=== PATIENT | male | born 1960 | race Caucasian/White ===

== ENCOUNTER 2017-01-31 14:29 | Emergency (ER) ==
--- NOTE | 2017-01-31 15:30 | Diag Imaging Result Document ---
PROCEDURE NAME: CHEST-2 VIEWS - 01/31/2017 CHEST X-RAY, 2 VIEWS: COMPARISON: 02/23/2016. FINDINGS: There is increased cavitation of the focal, ill-defined opacity in the right lung apex. This cavity measures about 7 x 5 cm on the frontal view. There is some stable peripheral interstitial opacity throughout the lungs compatible with scarring or fibrosis. Stable COPD changes. Heart size is normal. No pneumothorax or pleural effusion. IMPRESSION: 1. Increased cavitation of the right apical lung opacity, nonspecific. No new opacities. 2. Otherwise, stable COPD and pulmonary scarring.
[2017-01-31 15:56] LABS: MANUAL DIFF NEEDED? NO
[2017-01-31 16:00] LABS: BASO% 0.5 % (0.0-0.8); EOS# 0.09 X1000 (0.0-0.7); EOS% 1.4 % (0.0-10.0); HEMOGLOBIN 15.3 g/dL (14.0-18.0); LYMPH% 22.5 % (20.5-51.1); MCH 30.8 PG (27-31); MCV 90.5 FL (81-99); MONO# 0.44 X1000 (0.11-0.59); MONO% 7.1 % (1.7-9.3); NEUT% 68.5 % (42.2-75.2); PLT 161 X1000 (130-400); RBC 4.97 XMIL (4.7-6.1)
[2017-01-31] MEDS ORDERED: DUONEB (A & A) INH ONE (16:20)
[2017-01-31] MEDS ORDERED: SOLU-MEDROL IV ONE (16:20)
--- NOTE | 2017-01-31 16:26 | PROVIDER DOCUMENTATION ---
HPI-General Adult - General Chief Complaint: Cough Stated Complaint: poss pneumonia Time Seen by Provider: 01/31/17 16:03 Source: patient Allergies/Adverse Reactions: Patient Allergies Allergy/AdvReac Type Severity Reaction Status Date / Time aspirin Allergy ABDOMINAL Verified 01/31/17 15:34 PAIN naproxen AdvReac ABDOMINAL Verified 01/31/17 15:34 PAIN Home Medications: Home Medication List Medication Instructions Recorded Confirmed Last Taken Type Rifampin 2 cap PO QAM 02/24/15 01/31/17 01/31/17 History Ethambutol [Myambutol] 2 tab PO QAM 04/30/15 01/31/17 01/31/17 History PRAVAstatin [Pravachol] 40 mg PO QAM 10/10/15 01/31/17 01/31/17 History Buspirone HCl [Buspar] 5 mg pe PO BID 02/23/16 01/31/17 01/31/17 History Ropinirole [Requip] 4 mg PO HS 02/23/16 01/31/17 01/30/17 History Umeclidinium Brm/Vilanterol Tr 1 puff INH DAILY 02/23/16 01/31/17 01/31/17 History [Anoro Ellipta 62.5-25 Mcg INH] Albuterol Sulfate [Proair Hfa] 8.5 gm IH PRN PRN 04/05/16 01/31/17 01/31/17 History Azithromycin 500 mg PO DAILY 04/05/16 01/31/17 01/31/17 History Fluticasone 50 Mcg Nasal [place] 2 spray OPAL DAILY 04/05/16 01/31/17 01/31/17 History [Flonase] Ipratropium/Albuterol Sulfate 3 ml IH 4XDAY 04/05/16 01/31/17 01/31/17 History [Iprat-Albut 0.5-3(2.5) mg/3 ml] Acetaminophen [Tylenol] 1,000 mg PO Q6H #0 tablet 04/10/16 01/31/17 Unknown Rx Famotidine [Pepcid] 20 mg PO DAILY #0 tablet 04/10/16 01/31/17 Unknown Rx Tramadol [Ultram] 100 mg PO Q6H #60 tablet 04/10/16 01/31/17 01/31/17 Rx Azithromycin [Zithromax Z-Francesco] 250 mg PO DIRECTED #1 pkg 01/31/17 Unknown Rx Meloxicam 15 mg PO DAILY 01/31/17 01/31/17 01/31/17 History Methylprednisolone [Medrol Dosepak] 4 mg PO DIRECTED #1 package 01/31/17 Unknown Rx Phenylephrine HCl/Cod/Prometh 2 tsp PO Q6H PRN PRN #120 syrup 01/31/17 Unknown Rx [Phenergan Vc-Codeine Syrup] Rifampin [Rifadin] 600 mg PO DAILY 01/31/17 01/31/17 01/31/17 History - History of Present Illness -Gen Adult Nature of Presenting Problems: Pt. is 56 yom that presents with c/o SOB and cough that began in December. Pt.. reports increased SOB on exertion. Pt. states he is still a smoker and has a Hx of COPD. Pt. reports a Hx of spontaneous pneumothorax on the right side but today his has pain on the left side. Pt. denies any injury or fever. Location of Pain/Injury: reports: back. denies: head, face, mouth, neck, chest , upper extremity, hand(s), abdomen, pelvis, genitalia, lower extremity, feet, upper body, lower body, generalized Pain Radiation: reports: no radiation Quality of Pain: reports: aching. denies: burning, cramping, dull, fullness, indigestion, pressure, sharp, stabbing, tearing, throbbing, tightness Severity: reports: mild. denies: moderate, severe Onset/Duration: reports: gradual, other (Two months) Timing: reports: still present. denies: improving, gone now, resolved prior to arrival, intermittent, constant, changing over time, getting worse Context/Activities at Onset: reports: none. denies: recent emotional stress, recent physical stress, recent trauma history, possible bad food, cold exposure , out of country travel Modifying Factors: improves with: nothing Associated Symptoms: reports: back/neck pain, cough, shortness of breath. denies: anxiety, arm pain, chest pain, constipation, diaphoresis, diarrhea, dizziness, EENT symptoms, fatigue, fever/chills, genitourinary problems, headaches, heartburn, joint pain, loss of appetite, malaise, muscle aches, sinus congestion/drainage, nausea, rash, seizure, sensory/motor loss, pain with inspiration, swelling/mass in abdomen, syncope, vomiting, weakness, trouble walking Similar Symptoms Previously?: Yes Recently seen or treated by another doctor?: No Review of Systems - Adult - REVIEW OF SYSTEMS - ADULT Constitutional: reports: see HPI. denies: chills, fever, fatique Eyes: reports: see HPI. denies: discharge, blurred vision, double vision Ears, Nose, Mouth & Throat: reports: see HPI. denies: ear pain, hearing loss, sinus problem, nose pain, loose teeth, mouth/dental pain, throat pain, throat swelling Cardiovascular: reports: see HPI. denies: chest pain, edema, irregular heart rate, palpitations, syncope Respiratory: reports: see HPI, chronic cough, dyspnea on exertion, shortness of breath, wheezing. denies: cough, excessive sputum production, pleurisy Gastrointestinal: reports: see HPI. denies: abdominal pain, hematemesis, diarrhea, frequent heartburn, nausea, vomiting Genitourinary: reports: see HPI. denies: dysuria, discharge, hematuria, hesitency, urgency Musculoskeletal: reports: see HPI, back pain. denies: bone pain, joint pain, joint swelling, neck pain Integumentary: reports: see HPI. denies: hives, hair loss, itching, rash, skin thickening Neurological: reports: see HPI. denies: ataxia, headache/migraines, numbness, paresthesia, seizure, tremors Psychiatric: reports: see HPI. denies: anxiety, depression, emotional problems , insomnia, panic attacks, suicidal thoughts Past History - Adult - PAST MEDICAL HISTORY-ADULT Review of Records: reports: Old Records Reviewed, Nursing Assessment Review, Medications Reviewed, Social history reviewed & non-contributory. Major Childhood Illnesses: reports: denies history Cardiovascular: reports: CAD, hyperlipidemia, [place] Respiratory: reports: COPD Gastrointestinal: reports: other (gastritis) Musculoskeletal: reports: chronic pain (back), intervertebral disc disease - PRIOR SURGERIES/PROCEDURES Surgical/Procedure History: reports: none - IMMUNIZATION STATUS Childhood Immunizations: UTD Flu Vaccine: See Nurse Assessment - FAMILY HISTORY Family History: reviewed, not pertinent, HTN - SOCIAL HISTORY Smoking: cigarettes, less than 1 pack/day Provider spent 3-5 mins advising pt. on dangers of tobacco.: Discussed the need to stop smoking. Physical Exam-General - PHYSICAL EXAM-ADULT Initial Vital Signs Reviewed: Yes - CONSTITUTIONAL General Appearance: alert, moderate distress, thin. negative: obese, anxious, lethargic, slow to respond, obtunded, combative - EYES Eyes: PERRL/EOMI, pink conjunctivae. negative: conjuctival exudate, scleral icterus, subconjunctival hemorrhage - HEAD, EARS, NOSE, MOUTH & THROAT HENMT: normocephalic/atraumatic, moist mucous membranes. negative: angioedema, frontal tenderness, maxillary tenderness - NECK Neck: non-tender, full range of motion, supple, normal inspection. negative: lymphadenopathy, trachial deviation, thyromegaly - RESPIRATORY Respiratory: decreased breath sounds, wheezing. negative: crackles, rales, rhonchi, crepitus - CARDIOVASCULAR Cardiovascular: normal peripheral pulses, regular rate, rhythm, no edema, no JVD , no murmur. negative: extra beats, friction rub, irregularly irregular - CHEST (BREASTS) Chest/Breast: deferred - GASTROINTESTINAL (ABDOMEN) Abdominal Exam: normal bowel sounds, non tender, soft. negative: distended, guarding, rigid, rebound, tenderness, hernia, mass - GENITOURINARY Male Genitalia: deferred Rectal Exam: deferred Hemoccult Exam: deferred - LYMPHATIC Lymphatic: no adenopathy. negative: axilla node tender, cervical node tenderness - MUSCULOSKELETAL Back Exam: normal inspection, no CVA tenderness, no vertebral tenderness, other (Tenderness at the bottom of the left scapula on palpation) Extremity: normal range of motion, non-tender, normal gait, normal inspection. negative: deformity, erythema, inflammation, swelling, tenderness Peripheral Pulses: radial (R): 2+, radial (L): 2+ - SKIN Integumentary: normal color, normal turgor, warm/dry. negative: cyanosis, diaphoresis, ecchymosis, erythema, jaundice, mottled, pallor, petechiae, purpura , rash, swelling, tenderness - NEUROLOGIC Neurologic: grossly normal, no motor/sensory deficits. negative: aphasia, facial droop, focal weakness, motor weakness, sensory deficit - PSYCHIATRIC Psych/Mental Status: normal mood/affect, normal thought content, normal thought process, oriented x 3. negative: anxious, disheveled, tearful Progress - PLAN OF CARE/RESULTS Progress/Plan/Lab Results: Discussed results and plan of care with patient. Patient agrees with plan and verbalizes understanding. Vital Signs Temp Pulse Resp BP Pulse Ox 01/31/17 16:48 77 26 H 122/70 96 01/31/17 16:31 86 20 96 01/31/17 14:32 97.4 F L 97 H 20 104/68 96 aspirin Allergy (Verified 01/31/17 15:34) ABDOMINAL PAIN naproxen Adverse Reaction (Verified 01/31/17 15:34) ABDOMINAL PAIN Rifampin 2 cap PO QAM 02/24/15 Ethambutol [Myambutol] 2 tab PO QAM 04/30/15 PRAVAstatin [Pravachol] 40 mg PO QAM 10/10/15 Buspirone HCl [Buspar] 5 mg pe PO BID 02/23/16 Ropinirole [Requip] 4 mg PO HS 02/23/16 Umeclidinium Brm/Vilanterol Tr [Anoro Ellipta 62.5-25 Mcg INH] 1 puff INH DAILY 02/23/16 Albuterol Sulfate [Proair Hfa] 8.5 gm IH PRN PRN 04/05/16 Azithromycin 500 mg PO DAILY 04/05/16 Fluticasone 50 Mcg Nasal [place] [Flonase] 2 spray OPAL DAILY 04/05/16 Ipratropium/Albuterol Sulfate [Iprat-Albut 0.5-3(2.5) mg/3 ml] 3 ml IH 4XDAY Acetaminophen [Tylenol] 1,000 mg PO Q6H #0 tablet 04/10/16 Famotidine [Pepcid] 20 mg PO DAILY #0 tablet 04/10/16 Tramadol [Ultram] 100 mg PO Q6H #60 tablet 04/10/16 Meloxicam 15 mg PO DAILY 01/31/17 Rifampin [Rifadin] 600 mg PO DAILY 01/31/17 Laboratory 01/31/17 01/31/17 01/31/17 15:45 15:45 15:45 WBC 6.21 RBC 4.97 Hgb 15.3 Hct 45.0 MCV 90.5 MCH 30.8 MCHC 34.0 RDW Std Deviation 13.2 Plt Count 161 MPV 10.0 Immature Gran % (Auto) 0.0 Neut % (Auto) 68.5 Lymph % (Auto) 22.5 [place] % (Auto) 7.1 Eos % (Auto) 1.4 Baso % (Auto) 0.5 Immature Gran # (Auto) 0.00 Neut # (Auto) 4.25 Lymph # (Auto) 1.40 [place] # (Auto) 0.44 Eos # (Auto) 0.09 Baso # (Auto) 0.03 Sodium 139 Potassium 4.0 Chloride 102 Carbon Dioxide 22 L Anion Gap 15 BUN 15 Creatinine 0.7 Estimated GFR/1.73 m2 > 60 BUN/Creatinine Ratio 21 Glucose 109 H Calculated Osmolality 279 Calcium 9.4 Total Bilirubin 0.13 L AST 18 ALT 14 Alkaline Phosphatase 66 Troponin T < 0.010 Total Protein 7.0 Albumin 4.0 Globulin 3.0 Albumin/Globulin Ratio 1.3 Orders Category Date Time Status Saline Loc NOW Care 01/31/17 16:20 Active CHEST-2 VIEWS [RAD] Stat Exams 01/31/17 14:34 Draft CBC WITH DIFF [HEME] Stat Lab 01/31/17 15:45 Completed COMPREHENSIVE METABOLIC PANEL [CHEM] Stat Lab 01/31/17 15:45 Completed TROPONIN T Stat Lab 01/31/17 15:45 Completed Albuterol 2.5MG/Ipratrop 0.5MG [Duoneb (A & A)] Med 01/31/17 16:20 Discontinued 6 ml INH NOW ONE Methylprednisolone Sod Succ [Solu-Medrol] Med 01/31/17 16:20 Discontinued 125 mg IV NOW ONE Aerosol Treatments Routine Oth 01/31/17 16:20 Completed Aerosol Treatments Stat Oth 01/31/17 16:20 Completed EKG [EKG] Stat Ther 01/31/17 16:19 Ordered Laboratory Tests 01/31/17 01/31/17 01/31/17 15:45 15:45 15:45 WBC 6.21 RBC 4.97 Hgb 15.3 Hct 45.0 MCV 90.5 MCH 30.8 MCHC 34.0 RDW Std Deviation 13.2 Plt Count 161 MPV 10.0 Immature Gran % (Auto) 0.0 Neut % (Auto) 68.5 Lymph % (Auto) 22.5 [place] % (Auto) 7.1 Eos % (Auto) 1.4 Baso % (Auto) 0.5 Immature Gran # (Auto) 0.00 Neut # (Auto) 4.25 Lymph # (Auto) 1.40 [place] # (Auto) 0.44 Eos # (Auto) 0.09 Baso # (Auto) 0.03 Sodium 139 Potassium 4.0 Chloride 102 Carbon Dioxide 22 L Anion Gap 15 BUN 15 Creatinine 0.7 Estimated GFR/1.73 m2 > 60 BUN/Creatinine Ratio 21 Glucose 109 H Calculated Osmolality 279 Calcium 9.4 Total Bilirubin 0.13 L AST 18 ALT 14 Alkaline Phosphatase 66 Troponin T < 0.010 Total Protein 7.0 Albumin 4.0 Globulin 3.0 Albumin/Globulin Ratio 1.3 - XRAY 1 XRAY Study: Chest (Increased cavitation on the right apical lung, nonspecific. No new opacities. Otherwise stable COPD and pulmonary scaring. (Luis)) XRAY Interpretation: see note Departure - Departure Time of Disposition Order: 17:28 DIAGNOSIS: COPD exacerbation, Bronchitis Disposition: HOME 01 Certified Medical Emergency: Emergent Condition: Stable Additional Instructions: Follow up with primary care physician Take medications as directed Return to ED for any concerns or worsening of symptoms ED Follow Up Instructions: You have been treated by a care provider in the Emergency Department. These instructions are being provided to you so you can have an understanding of how to care for yourself upon discharge. Upon discharge from the Emergency Department, you are responsible for making arrangements for follow-up care by a physician of your choice. Take all prescribed medications as directed. Return to the Emergency Department immediately for any new or worsening symptoms. You may call the Physician Referral phone number at [phone] to obtain a list of Physicians who are taking new patients. Prescriptions: Methylprednisolone [Medrol Dosepak] 4 mg PO DIRECTED #1 package Phenylephrine HCl/Cod/Prometh [Phenergan Vc-Codeine Syrup] 2 tsp PO Q6H PRN PRN #120 syrup PRN Reason: Cough Azithromycin [Zithromax Z-Francesco] 250 mg PO DIRECTED #1 pkg Attestation - Physician/ MALORIE Attestation Patient care was provided by Advanced Practice Provider:: Yes Advanced Practice Provider:: Rain Avina Advanced Practice Provider documentation review:: The Mid-level provider documentation, treatment plan and medical decision making was reviewed by the physician who agrees with all treatment and medical decision making by the MLP.
[2017-01-31 16:30] LABS: AGAP 15; ALKALINE PHOSPHATASE 66 U/L (32-122); BUN 15 mg/dL (8-22); CALCIUM 9.4 mg/dL (8.8-10.2); CHLORIDE 102 mmol/L (98-107); COSMO 279; GOT 18 U/L (10-34); GPT 14 U/L (10-44); SODIUM 139 mmol/L (136-145); TCO2 22 mmol/L (25-35); TOTAL BILIRUBIN 0.13 mg/dL (0.20-1.00)
--- NOTE | 2017-01-31 17:26 | ED EKG INTERP ---
EKG Interpretation - EKG Time of EKG reading by physician:: 17:15 EKG Read and Signed by:: Kevin Swift EKG Interpretation (*Must complete 3 of following elements*): Normal Rate: 66 Rhythm: nsr [place]: normal QRS: normal [place] Interval: normal ST Wave: normal
[2017-01-31 17:42] VITALS: BP 110/75
--- NOTE | 2017-02-01 09:22 | EKG Report ---
Test Performed on : 01/31/2017 5:15:48 PM Test Reason : CP Blood Pressure : / mmHG Vent. Rate : 066 BPM Atrial Rate : 066 BPM P-R Int : 150 ms QRS Dur : 100 ms QT Int : 368 ms P-R-T Axes : 060 066 073 degrees QTc Int : 385 ms Normal sinus rhythm. Normal ECG When compared with ECG of 23-FEB-2016 20:09, No significant change was found Unconfirmed Result
== END 2017-01-31 17:43 | disposition home or self-care (01) ==
LOC: ED 14:29
DX: J44.1 Chronic obstructive pulmonary disease with (acute) exacerbation (principal); J40 Bronchitis, not specified as acute or chronic; R06.02 Shortness of breath; R05 Cough; M54.9 Dorsalgia, unspecified; G89.29 Other chronic pain; R06.09 Other forms of dyspnea; R06.2 Wheezing; I25.10 Atherosclerotic heart disease of native coronary artery without angina pectoris; E78.5 Hyperlipidemia, unspecified; I25.2 Old myocardial infarction; J44.9 Chronic obstructive pulmonary disease, unspecified; F17.210 Nicotine dependence, cigarettes, uncomplicated; Z71.6 Tobacco abuse counseling; Z79.899 Other long term (current) drug therapy; Z79.1 Long term (current) use of non-steroidal anti-inflammatories (NSAID); Z79.51 Long term (current) use of inhaled steroids; Z82.49 Family history of ischemic heart disease and other diseases of the circulatory system
CPT/HCPCS: 71020; 80053; 84484; 85025; 93005; 94640; J2930

== ENCOUNTER 2017-02-02 14:25 | Observation (INO) ==
--- NOTE | 2017-02-02 14:58 | ED EKG INTERP ---
EKG Interpretation - EKG Time of EKG reading by physician:: 14:34 EKG Read and Signed by:: Constantin Ramsey EKG Interpretation (*Must complete 3 of following elements*): Abnormal Rate: 103 Rhythm: sinus tachycardia Comments: otherwise normal ECG Attestation - Scribe Verification/Attestation Scribe:: Jeanine Bucio Acting as Scribe for:: Constantin Ramsey Scribe documention review:: This chart was documented by a scribe and accurately reflects the service the provider performed and the decisions made by the provider.
[2017-02-02] MEDS ORDERED: DUONEB (A & A) INH ONE (15:16)
[2017-02-02] MEDS ORDERED: SOLU-MEDROL IV ONE (15:22)
[2017-02-02] MEDS ORDERED: NS 500 ML IV ONE ×2 (15:50→16:21)
[2017-02-02 15:52] LABS: MANUAL DIFF NEEDED? NO
[2017-02-02 15:56] LABS: BASO% 0.6 % (0.0-0.8); EOS# 0.02 X1000 (0.0-0.7); EOS% 0.4 % (0.0-10.0); HEMATOCRIT 43.2 % (42.0-52.0); HEMOGLOBIN 14.6 g/dL (14.0-18.0); LYMPH# 1.19 X1000 (1.2-3.4); LYMPH% 22.8 % (20.5-51.1); MCH 31.1 PG (27-31); MCHC 33.8 g/dL (33-37); MCV 91.9 FL (81-99); MONO# 0.51 X1000 (0.11-0.59); MONO% 9.8 % (1.7-9.3); MPV 10.5 FL (7.4-10.4); NEUT% 66.4 % (42.2-75.2); PLT 153 X1000 (130-400)
[2017-02-02 16:23] LABS: AGAP 11; ALBUMIN 3.9 g/dL (3.5-5.0); ALKALINE PHOSPHATASE 53 U/L (32-122); BUN 16 mg/dL (8-22); CHLORIDE 98 mmol/L (98-107); COSMO 271; GOT 16 U/L (10-34); GPT 15 U/L (10-44); POTASSIUM 3.6 mmol/L (3.5-5.1); SODIUM 135 mmol/L (136-145); TCO2 26 mmol/L (25-35); TOTAL BILIRUBIN 0.31 mg/dL (0.20-1.00)
--- NOTE | 2017-02-02 17:00 | Diag Imaging Result Document ---
PROCEDURE NAME: CHEST-PORTABLE - 02/02/2017 SINGLE FRONTAL RADIOGRAPH OF THE CHEST: COMPARISON: 01/31/2017. FINDINGS: The cavitary lesion at the right lung apex is stable. No new consolidations are identified. There are no definite pleural fluid collections. Cardiac silhouette and central vasculature are stable. IMPRESSION: Stable cavitary lesion at the right lung apex. Otherwise, the chest is unchanged.
[2017-02-02] MEDS ORDERED: ROCEPHIN 1 GM/NS 50 ML IV ONE (17:04)
[2017-02-02] MEDS ORDERED: ALBUTEROL NEB INH ONE (17:05)
[2017-02-02] MEDS ORDERED: ALBUTEROL NEB ONE (17:24)
[2017-02-02 17:51] LABS: ALLEN TEST YES; BE 0.3 mmoll (-3.0-3.0); BLOOD TYPE ARTERIAL; DRAW SITE R RADIAL; METHB 1.4 % (0.0-1.5); O2(CT) 18.2 mL/dL (15.0-23.0); PCO2(98.6) 45 mmHg (35-45); PO2(98.6) 68 mmHg (60-100); SAMPLE BLOOD; THB 14.5 g/dL (11.5-17.4); pH(98.6) 7.37 (7.35-7.45)
[2017-02-02 17:58] LABS: MODALITY CANNULA
[2017-02-02 19:26] LABS: URINE MICRO REVIEW NEEDED? NO; URINE SOURCE CLEAN CATCH
[2017-02-02 19:29] LABS: BILIRUBIN URINE NEGATIVE (NEGATIVE); BLOOD URINE NEGATIVE (NEGATIVE); COLOR YELLOW; GLUCOSE URINE NEGATIVE (NEGATIVE); LEUKOCYTES URINE NEGATIVE (NEGATIVE); NITRITE URINE NEGATIVE (NEGATIVE); PH URINE 6.5; PROTEIN URINE NEGATIVE (NEGATIVE); TURBIDITY URINE CLEAR (CLEAR); UROBILINOGEN URINE NORMAL (NORMAL)
[2017-02-02 19:31] LABS: UR EPITHELIAL CELLS <10 /HPF (<10); URINE BACTERIA NEGATIVE /HPF; URINE RBC <10 /HPF (<10); URINE WBC <10 /HPF (<10)
--- NOTE | 2017-02-02 20:08 | PROVIDER DOCUMENTATION ---
HPI-Respiratory General - General Chief Complaint: Shortness of Breath Stated Complaint: SOB Time Seen by Provider: 02/02/17 14:57 Source: patient Allergies/Adverse Reactions: Patient Allergies Allergy/AdvReac Type Severity Reaction Status Date / Time aspirin Allergy ABDOMINAL Verified 02/02/17 15:07 PAIN naproxen AdvReac ABDOMINAL Verified 02/02/17 15:07 PAIN Home Medications: Home Medication List Medication Instructions Recorded Confirmed Last Taken Type Ethambutol [Myambutol] 2 tab PO QAM 04/30/15 02/02/17 02/02/17 08:00 History PRAVAstatin [Pravachol] 40 mg PO QAM 10/10/15 02/02/17 02/02/17 08:00 History Buspirone HCl [Buspar] 5 mg pe PO BID 02/23/16 02/02/17 02/02/17 08:00 History Ropinirole [Requip] 4 mg PO HS 02/23/16 02/02/17 02/02/17 08:00 History Umeclidinium Brm/Vilanterol Tr 1 puff INH DAILY 02/23/16 02/02/17 02/02/17 08: 00 History [Anoro Ellipta 62.5-25 Mcg INH] Albuterol Sulfate [Proair Hfa] 8.5 gm IH PRN PRN 04/05/16 02/02/17 02/02/17 13: 00 History Fluticasone 50 Mcg Nasal [place] 2 spray OPAL DAILY 04/05/16 02/02/17 02/02/17 08: 00 History [Flonase] Ipratropium/Albuterol Sulfate 3 ml IH 4XDAY 04/05/16 02/02/17 02/02/17 13:00 History [Iprat-Albut 0.5-3(2.5) mg/3 ml] Acetaminophen [Tylenol] 1,000 mg PO Q6H #0 tablet 04/10/16 02/02/17 02/02/17 08: 00 Rx Azithromycin [Zithromax Z-Francesco] 250 mg PO DIRECTED #1 pkg 01/31/17 02/02/17 08:00 Rx Meloxicam 15 mg PO DAILY 01/31/17 02/02/17 02/02/17 08:00 History Methylprednisolone [Medrol Dosepak] 4 mg PO DIRECTED #1 package 01/31/1702/02/17 08:00 Rx Phenylephrine HCl/Cod/Prometh 2 tsp PO Q6H PRN PRN #120 syrup 01/31/17 02/02/17 02/02/17 08:00 Rx [Phenergan Vc-Codeine Syrup] Rifampin [Rifadin] 600 mg PO DAILY 01/31/17 02/02/17 02/02/17 08:00 History - History of Present Illness-Resp Nature of Presenting Problem: 56 yo with worsening shortnes of breath. KNown COPD and MAC chronic infection. Started to smoke again after recent . Not imrpoving despite zithromax, medrol dose pack and nebulizer Onset/Duration: reports: 1 week ago Timing: reports: getting worse Cough Quality/Degree: reports: severe, productive cough (white sputum) Current Respiratory Medication Therapy: Initiated see nurses note, Initiated A/ A nebulizer, Initiated steroid inhaler, Initiated other oral steroid Similar Symptoms Previously?: Yes Review of Systems - Adult - REVIEW OF SYSTEMS - ADULT Constitutional: reports: chills, fever Eyes: reports: no symptoms reported Ears, Nose, Mouth & Throat: reports: no symptoms reported Cardiovascular: reports: chest pain (L sided) Respiratory: reports: cough, shortness of breath, wheezing Gastrointestinal: reports: no symptoms reported Genitourinary: reports: no symptoms reported Neurological: reports: no symptoms reported Endocrine: reports: no symptoms reported Past History - Adult - PAST MEDICAL HISTORY-ADULT Review of Records: reports: Old Records Reviewed, Nursing Assessment Review, Medications Reviewed Major Childhood Illnesses: reports: denies history Cardiovascular: reports: CAD, hyperlipidemia, [place] Respiratory: reports: COPD Gastrointestinal: reports: other (gastritis) Musculoskeletal: reports: chronic pain (back), intervertebral disc disease - PRIOR SURGERIES/PROCEDURES Surgical/Procedure History: reports: none - IMMUNIZATION STATUS Childhood Immunizations: UTD Flu Vaccine: See Nurse Assessment - FAMILY HISTORY Family History: reviewed, not pertinent, HTN Physical Exam-General - PHYSICAL EXAM-ADULT Initial Vital Signs Reviewed: Yes - CONSTITUTIONAL General Appearance: alert, mild distress - EYES Eyes: PERRL/EOMI - HEAD, EARS, NOSE, MOUTH & THROAT HENMT: moist mucous membranes, normal ENT inspection - NECK Neck: non-tender, full range of motion, supple, normal inspection - RESPIRATORY Respiratory: decreased breath sounds, wheezing - CARDIOVASCULAR Cardiovascular: regular rate, rhythm, no edema, no gallop, no JVD, no murmur - GASTROINTESTINAL (ABDOMEN) Abdominal Exam: normal bowel sounds, non tender, soft, no organomegaly - GENITOURINARY Male Genitalia: deferred - MUSCULOSKELETAL Back Exam: normal inspection, no CVA tenderness, no vertebral tenderness Extremity: normal range of motion, non-tender, normal inspection, no pedal edema Progress - PLAN OF CARE/RESULTS Progress/Plan/Lab Results: Laboratory Tests 02/02/17 02/02/17 02/02/17 15:01 15:01 15:01 WBC 5.21 RBC 4.70 Hgb 14.6 Hct 43.2 MCV 91.9 MCH 31.1 H MCHC 33.8 RDW Std Deviation 13.2 Plt Count 153 MPV 10.5 H Immature Gran % (Auto) 0.0 Neut % (Auto) 66.4 Lymph % (Auto) 22.8 [place] % (Auto) 9.8 H Eos % (Auto) 0.4 Baso % (Auto) 0.6 Immature Gran # (Auto) 0.00 Neut # (Auto) 3.46 Lymph # (Auto) 1.19 L [place] # (Auto) 0.51 Eos # (Auto) 0.02 Baso # (Auto) 0.03 Specimen Type Sample Site pH pCO2 pO2 HCO3 Base Excess Oxyhemoglobin ABG O2 Sat (Calculated) ABG O2 Saturation ABG Carboxyhemoglobin ABG Methemoglobin Fabrice Test A-a O2 Difference Total Hemoglobin Lactate Liter Flow Blood Gas Modality FiO2 % Sodium 135 L Potassium 3.6 Chloride 98 Carbon Dioxide 26 Anion Gap 11 BUN 16 Creatinine 0.8 Estimated GFR/1.73 m2 > 60 BUN/Creatinine Ratio 20 Glucose 89 Calculated Osmolality 271 Calcium 9.0 Total Bilirubin 0.31 AST 16 ALT 15 Alkaline Phosphatase 53 Troponin T Nfx-Y-Vcmtnebwlso Pept 49 Total Protein 7.0 Albumin 3.9 Globulin 3.1 Albumin/Globulin Ratio 1.3 Plasma Lactate Urine Source Urine Color Urine Turbidity Urine pH Ur Specific [place] Urine Protein Ur Glucose (Stick) Ur Ketones (Stick) Urine Blood Urine Nitrite Urine Bilirubin Urobilinogen Dipstick Urine Leukocytes Urine WBC (Auto) Urine RBC (Auto) U Epithel Cells (Auto) Urine Bacteria (Auto) 02/02/17 02/02/17 02/02/17 15:01 16:54 17:45 WBC RBC Hgb Hct MCV MCH MCHC RDW Std Deviation Plt Count MPV Immature Gran % (Auto) Neut % (Auto) Lymph % (Auto) [place] % (Auto) Eos % (Auto) Baso % (Auto) Immature Gran # (Auto) Neut # (Auto) Lymph # (Auto) [place] # (Auto) Eos # (Auto) Baso # (Auto) Specimen Type ARTERIAL Sample Site R RADIAL pH 7.37 pCO2 45 pO2 68 HCO3 24.9 Base Excess 0.3 Oxyhemoglobin 89.3 L* ABG O2 Sat (Calculated) 18.2 ABG O2 Saturation 98.0 ABG Carboxyhemoglobin 7.50 H* ABG Methemoglobin 1.4 Fabrice Test YES A-a O2 Difference 75.0 Total Hemoglobin 14.5 Lactate 0.60 Liter Flow 2.0 Blood Gas Modality [place] FiO2 % 28.0 Sodium Potassium Chloride Carbon Dioxide Anion Gap BUN Creatinine Estimated GFR/1.73 m2 BUN/Creatinine Ratio Glucose Calculated Osmolality Calcium Total Bilirubin AST ALT Alkaline Phosphatase Troponin T < 0.010 Kmk-Z-Qvqvgvkvsng Pept Total Protein Albumin Globulin Albumin/Globulin Ratio Plasma Lactate 0.9 Urine Source Urine Color Urine Turbidity Urine pH Ur Specific [place] Urine Protein Ur Glucose (Stick) Ur Ketones (Stick) Urine Blood Urine Nitrite Urine Bilirubin Urobilinogen Dipstick Urine Leukocytes Urine WBC (Auto) Urine RBC (Auto) U Epithel Cells (Auto) Urine Bacteria (Auto) 02/02/17 18:28 WBC RBC Hgb Hct MCV MCH MCHC RDW Std Deviation Plt Count MPV Immature Gran % (Auto) Neut % (Auto) Lymph % (Auto) [place] % (Auto) Eos % (Auto) Baso % (Auto) Immature Gran # (Auto) Neut # (Auto) Lymph # (Auto) [place] # (Auto) Eos # (Auto) Baso # (Auto) Specimen Type Sample Site pH pCO2 pO2 HCO3 Base Excess Oxyhemoglobin ABG O2 Sat (Calculated) ABG O2 Saturation ABG Carboxyhemoglobin ABG Methemoglobin Fabrice Test A-a O2 Difference Total Hemoglobin Lactate Liter Flow Blood Gas Modality FiO2 % Sodium Potassium Chloride Carbon Dioxide Anion Gap BUN Creatinine Estimated GFR/1.73 m2 BUN/Creatinine Ratio Glucose Calculated Osmolality Calcium Total Bilirubin AST ALT Alkaline Phosphatase Troponin T Nzy-K-Ztqnxanbelv Pept Total Protein Albumin Globulin Albumin/Globulin Ratio Plasma Lactate Urine Source CLEAN CATCH Urine Color YELLOW Urine Turbidity CLEAR Urine pH 6.5 Ur Specific [place] 1.010 Urine Protein NEGATIVE Ur Glucose (Stick) NEGATIVE Ur Ketones (Stick) NEGATIVE Urine Blood NEGATIVE Urine Nitrite NEGATIVE Urine Bilirubin NEGATIVE Urobilinogen Dipstick NORMAL Urine Leukocytes NEGATIVE Urine WBC (Auto) <10 Urine RBC (Auto) <10 U Epithel Cells (Auto) <10 Urine Bacteria (Auto) NEGATIVE Orders Category Date Time Status Oxygen Therapy- ED Nursing DIRECTED Care 02/02/17 15:16 Active Saline Loc DIRECTED Care 02/02/17 15:16 Active CHEST-PORTABLE [RAD] Stat Exams 02/02/17 15:[address] THORAX W/CONTRAST [CT] Stat Exams 02/02/17 17:13 Taken ABG [RESP] Routine Lab 02/02/17 17:45 Completed BLOOD CULTURE [BLDCUL] Stat Lab 02/02/17 16:54 Results CBC WITH ELECTRONIC DIFF [HEME] Stat Lab 02/02/17 15:01 Completed COMPREHENSIVE METABOLIC PANEL [CHEM] Stat Lab 02/02/17 15:01 Completed LACTATE, PLASMA [CHEM] Stat Lab 02/02/17 16:54 Completed PRO B-NATRIURETIC PEPTIDE Stat Lab 02/02/17 15:01 Completed TROPONIN T Stat Lab 02/02/17 15:01 Completed URINALYSIS [URINALYSIS] Stat Lab 02/02/17 18:28 Completed 0.9% Sodium Chloride Inj [Ns] 500 ml Med 02/02/17 16:21 Discontinued IV 500 mls/hr 0.9% Sodium Chloride Inj [Ns] 500 ml Med 02/02/17 15:50 Discontinued IV 999 mls/hr Albuterol 2.5MG/Ipratrop 0.5MG [Duoneb (A & A)] Med 02/02/17 15:16 Discontinued 3 ml INH NOW ONE Albuterol [Albuterol Neb] Med 02/02/17 17:24 Discontinued 2.5 mg .ROUTE .STK-MED ONE Albuterol [Albuterol Neb] Med 02/02/17 17:05 Discontinued 2.5 mg INH NOW ONE CefTRIAXONE 1 GM/NS [Rocephin 1 gm/Ns] 50 ml Med 02/02/17 17:04 Discontinued IV NOW Methylprednisolone Sod Succ [Solu-Medrol] Med 02/02/17 15:22 Discontinued 60 mg IV NOW ONE Aerosol Treatments Routine Oth 02/02/17 15:17 Completed Aerosol Treatments Routine Oth 02/02/17 17:05 Completed Aerosol Treatments Stat Ot 02/02/17 15:16 Completed Aerosol Treatments Stat Ot 02/02/17 15:17 Completed Aerosol Treatments Stat Ot 02/02/17 17:05 Completed Pulse Oximetry Stat Ot 02/02/17 15:16 Completed Vital Signs Temp Pulse Resp BP Pulse Ox 02/02/17 19:39 69 20 93/61 99 02/02/17 18:37 100/66 02/02/17 18:14 80 106/67 02/02/17 17:55 72 20 94/69 96 02/02/17 15:49 68 17 84/68 94 L 02/02/17 15:20 68 20 02/02/17 14:30 97.9 F 92 H 26 H 89/67 96 aspirin Allergy (Verified 02/02/17 15:07) ABDOMINAL PAIN naproxen Adverse Reaction (Verified 02/02/17 15:07) ABDOMINAL PAIN Ethambutol [Myambutol] 2 tab PO QAM 04/30/15 PRAVAstatin [Pravachol] 40 mg PO QAM 10/10/15 Buspirone HCl [Buspar] 5 mg pe PO BID 02/23/16 Ropinirole [Requip] 4 mg PO HS 02/23/16 Umeclidinium Brm/Vilanterol Tr [Anoro Ellipta 62.5-25 Mcg INH] 1 puff INH DAILY 02/23/16 Albuterol Sulfate [Proair Hfa] 8.5 gm IH PRN PRN 04/05/16 Fluticasone 50 Mcg Nasal [place] [Flonase] 2 spray OPAL DAILY 04/05/16 Ipratropium/Albuterol Sulfate [Iprat-Albut 0.5-3(2.5) mg/3 ml] 3 ml IH 4XDAY Acetaminophen [Tylenol] 1,000 mg PO Q6H #0 tablet 04/10/16 Azithromycin [Zithromax Z-Francesco] 250 mg PO DIRECTED #1 pkg 01/31/17 Meloxicam 15 mg PO DAILY 01/31/17 Methylprednisolone [Medrol Dosepak] 4 mg PO DIRECTED #1 package 01/31/17 Phenylephrine HCl/Cod/Prometh [Phenergan Vc-Codeine Syrup] 2 tsp PO Q6H PRN PRN #120 syrup 01/31/17 Rifampin [Rifadin] 600 mg PO DAILY 01/31/17 I&O 02/01/17 02/02/17 02/03/17 06:59 06:59 06:59 Output Total 50 Balance -50 Laboratory 02/02/17 02/02/17 02/02/17 18:28 17:45 16:54 WBC RBC Hgb Hct MCV MCH MCHC RDW Std Deviation Plt Count MPV Immature Gran % (Auto) Neut % (Auto) Lymph % (Auto) [place] % (Auto) Eos % (Auto) Baso % (Auto) Immature Gran # (Auto) Neut # (Auto) Lymph # (Auto) [place] # (Auto) Eos # (Auto) Baso # (Auto) Specimen Type ARTERIAL Sample Site R RADIAL pH 7.37 pCO2 45 pO2 68 HCO3 24.9 Base Excess 0.3 Oxyhemoglobin 89.3 L* ABG O2 Sat (Calculated) 18.2 ABG O2 Saturation 98.0 ABG Carboxyhemoglobin 7.50 H* ABG Methemoglobin 1.4 Fabrice Test YES A-a O2 Difference 75.0 Total Hemoglobin 14.5 Lactate 0.60 Liter Flow 2.0 Blood Gas Modality [place] FiO2 % 28.0 Sodium Potassium Chloride Carbon Dioxide Anion Gap BUN Creatinine Estimated GFR/1.73 m2 BUN/Creatinine Ratio Glucose Calculated Osmolality Calcium Total Bilirubin AST ALT Alkaline Phosphatase Troponin T Svj-Q-Jxkwqtlseul Pept Total Protein Albumin Globulin Albumin/Globulin Ratio Plasma Lactate 0.9 Urine Source CLEAN CATCH Urine Color YELLOW Urine Turbidity CLEAR Urine pH 6.5 Ur Specific [place] 1.010 Urine Protein NEGATIVE Ur Glucose (Stick) NEGATIVE Ur Ketones (Stick) NEGATIVE Urine Blood NEGATIVE Urine Nitrite NEGATIVE Urine Bilirubin NEGATIVE Urobilinogen Dipstick NORMAL Urine Leukocytes NEGATIVE Urine WBC (Auto) <10 Urine RBC (Auto) <10 U Epithel Cells (Auto) <10 Urine Bacteria (Auto) NEGATIVE 02/02/17 02/02/17 02/02/17 15:01 15:01 15:01 WBC RBC Hgb Hct MCV MCH MCHC RDW Std Deviation Plt Count MPV Immature Gran % (Auto) Neut % (Auto) Lymph % (Auto) [place] % (Auto) Eos % (Auto) Baso % (Auto) Immature Gran # (Auto) Neut # (Auto) Lymph # (Auto) [place] # (Auto) Eos # (Auto) Baso # (Auto) Specimen Type Sample Site pH pCO2 pO2 HCO3 Base Excess Oxyhemoglobin ABG O2 Sat (Calculated) ABG O2 Saturation ABG Carboxyhemoglobin ABG Methemoglobin Fabrice Test A-a O2 Difference Total Hemoglobin Lactate Liter Flow Blood Gas Modality FiO2 % Sodium 135 L Potassium 3.6 Chloride 98 Carbon Dioxide 26 Anion Gap 11 BUN 16 Creatinine 0.8 Estimated GFR/1.73 m2 > 60 BUN/Creatinine Ratio 20 Glucose 89 Calculated Osmolality 271 Calcium 9.0 Total Bilirubin 0.31 AST 16 ALT 15 Alkaline Phosphatase 53 Troponin T < 0.010 Ysd-K-Ztmojmmqxop Pept 49 Total Protein 7.0 Albumin 3.9 Globulin 3.1 Albumin/Globulin Ratio 1.3 Plasma Lactate Urine Source Urine Color Urine Turbidity Urine pH Ur Specific [place] Urine Protein Ur Glucose (Stick) Ur Ketones (Stick) Urine Blood Urine Nitrite Urine Bilirubin Urobilinogen Dipstick Urine Leukocytes Urine WBC (Auto) Urine RBC (Auto) U Epithel Cells (Auto) Urine Bacteria (Auto) 02/02/17 15:01 WBC 5.21 RBC 4.70 Hgb 14.6 Hct 43.2 MCV 91.9 MCH 31.1 H MCHC 33.8 RDW Std Deviation 13.2 Plt Count 153 MPV 10.5 H Immature Gran % (Auto) 0.0 Neut % (Auto) 66.4 Lymph % (Auto) 22.8 [place] % (Auto) 9.8 H Eos % (Auto) 0.4 Baso % (Auto) 0.6 Immature Gran # (Auto) 0.00 Neut # (Auto) 3.46 Lymph # (Auto) 1.19 L [place] # (Auto) 0.51 Eos # (Auto) 0.02 Baso # (Auto) 0.03 Specimen Type Sample Site pH pCO2 pO2 HCO3 Base Excess Oxyhemoglobin ABG O2 Sat (Calculated) ABG O2 Saturation ABG Carboxyhemoglobin ABG Methemoglobin Fabrice Test A-a O2 Difference Total Hemoglobin Lactate Liter Flow Blood Gas Modality FiO2 % Sodium Potassium Chloride Carbon Dioxide Anion Gap BUN Creatinine Estimated GFR/1.73 m2 BUN/Creatinine Ratio Glucose Calculated Osmolality Calcium Total Bilirubin AST ALT Alkaline Phosphatase Troponin T Wkd-Y-Hipfqxtcxdl Pept Total Protein Albumin Globulin Albumin/Globulin Ratio Plasma Lactate Urine Source Urine Color Urine Turbidity Urine pH Ur Specific [place] Urine Protein Ur Glucose (Stick) Ur Ketones (Stick) Urine Blood Urine Nitrite Urine Bilirubin Urobilinogen Dipstick Urine Leukocytes Urine WBC (Auto) Urine RBC (Auto) U Epithel Cells (Auto) Urine Bacteria (Auto) - XRAY 1 XRAY Study: Chest (R upper lung cavitary process) - CT/MRI 1 CT Study: Thorax (worsening infectious process) - CONSULTS/PCP/HOSPITALIST Notification #1 *Consult/PCP/Hospitalist*: Dr Hilario Time Discussed: 18:45 Consult Disposition: Will see in ED, Admit - CHANGE OF SHIFT REPORT (ED Provider) Tentative Impression of Patient: COPD exascerbation, low BP suggests sepsis? worsening chest process Departure - Departure Time of Disposition Order: 18:45 DIAGNOSIS: COPD exacerbation, Pneumonia Disposition: ADMITTED INPATIENT 09 Certified Medical Emergency: Emergent Condition: Fair Referrals: Carina Vergara MD [Primary Care Provider] -
--- NOTE | 2017-02-02 20:20 | Diag Imaging Result Document ---
PROCEDURE NAME: CT THORAX W/CONTRAST - 02/02/2017 CT CHEST WITH IV CONTRAST: COMPARISON: 11/25/2015. FINDINGS: There is severe pulmonary emphysema. Since the previous study, there has been an overall increase in the cavitation of the thick-walled cavitary mass in the right lung apex. It's overall size is somewhat larger but this appears to be due to the increase in size of the central air-filled cavity. It measures approximately 6.1 x 4.7 cm axially (4.8 x 4.1 cm previously). This is reported to be due to RODGER infection. There is bronchiectasis near the right lung apex similar to the previous study. There are multiple new smaller nodules throughout both lungs. Most of these new nodules are in the upper lobes as well as the right middle lobe. However, there are a few new nodules in the right lower lobe as well. For instance, there is a new nodule in the right upper lobe anteriorly on image 52 of series 3 that measures up to 1.9 cm in the greatest dimension. There is also a new nodule in the left upper lobe on image 55 of series 3 that measures up to 1.7 cm in the greatest dimension. These are probably infectious nodules related to the patient's mycobacterial infection. Continued surveillance is recommended. There are no pleural fluid collections and there is no pneumothorax. The heart is not enlarged. There are a few calcified mediastinal lymph nodes indicating prior granulomatous disease. Limited views of the upper abdomen reveal a few low- dense hepatic foci that are similar to the previous study and probably represent tiny cysts. IMPRESSION: 1. Severe emphysema. 2. Modest increase in size of the cavitary mass at the right lung apex with increase in its cavitation. 3. Multiple new pulmonary nodules that are smaller than the dominant mass bilaterally. These are also likely related to the patient's chronic mycobacterial infection. However, continued surveillance is recommended. 4. Other incidental/nonacute findings detailed above. [facility]
[2017-02-02] MEDS ORDERED: LEVAQUIN 750 MG/D5W 150 ML IV SCH (23:16)
[2017-02-02] MEDS ORDERED: REQUIP PO SCH (23:45)
[2017-02-02] MEDS: SOLU-MEDROL IV SCH (23:50)
[2017-02-03] MEDS ORDERED: DUONEB (A & A) INH PRN (01:28)
--- NOTE | 2017-02-03 04:25 | HISTORY AND PHYSICAL ---
CHIEF COMPLAINT: Shortness of breath x3 weeks. HISTORY OF PRESENTING ILLNESS: This 56-year-old male with a history of a MAC infection and COPD with emphysema presented to the emergency department with 3 weeks history of progressive worsening shortness of breath. The patient states for the past 2-3 days he was gasping for breath and was having more cough symptoms. Subsequently had come to the emergency department where he was evaluated and it was thought that he would need hospitalization for further treatment. At the time my examination, he denied any headache, fever, chills, nausea, vomiting, diarrhea, hemoptysis, melena, or weight changes, but complained of shortness of breath and cough. PAST MEDICAL HISTORY: COPD and MAC infection. PAST SURGICAL HISTORY: Right knee surgery. ALLERGIES: Naproxen. CURRENT MEDICATIONS: As listed in MAR. SOCIAL HISTORY: Forty-five pack years history of smoking. History of social alcohol use. Denies any illicit drug use. FAMILY HISTORY: No history of coronary disease. REVIEW OF SYSTEMS: Twelve point systems listed is as in HPI. Other systems negative. PHYSICAL EXAMINATION: GENERAL: Cooperative, friendly male. He is resting more comfortably now. VITAL SIGNS: Temperature 97.9 degrees, pulse 92, respiration are 17, blood pressure was 84/68. HEENT: Atraumatic, normocephalic. Extraocular movements intact. PERRLA. NECK: No masses. CHEST: Rhonchi. CARDIOVASCULAR: Regular rate and rhythm. ABDOMEN: Soft. Positive bowel sounds. EXTREMITIES: No edema. NEUROLOGIC: He is awake, alert, oriented x3. GENITOURINARY: No bladder distention. SKIN: Warm. LABORATORIES AND STUDIES: WBC 5.21, hemoglobin 14.6, hematocrit 43.2, platelets 153,000. Sodium 135, potassium 3.6, chloride 98, CO2 of 26, BUN is 11, creatinine 0.8. ASSESSMENT: This 56-year-old male with a history of chronic obstructive pulmonary disease, and emphysema and a MAC infection had presented to emergency department with 3 days history of progressive worsening shortness of breath. The patient was evaluated in the emergency room and symptoms suggestive of chronic obstructive pulmonary disease exacerbation. He will need hospitalization for further management. 1. Acute chronic obstructive pulmonary disease exacerbation. 2. Chronic MAC infection. 3. Ongoing tobacco abuse. PLAN: 1. We will admit patient to medical floor with telemetry. 2. We will continue patient on IV antibiotics and DuoNebs. 3. I counseled patient on smoking cessation. 4. We will put patient on DVT prophylaxis with SCD. 5. We will continue to follow and reassess.
[2017-02-03] MEDS: SOLU-MEDROL IV SCH ×2 (05:49→11:05)
[2017-02-03 06:19] LABS: MANUAL DIFF NEEDED? NO
[2017-02-03 06:29] LABS: BASO% 0.2 % (0.0-0.8); HEMATOCRIT 42.1 % (42.0-52.0); HEMOGLOBIN 14.3 g/dL (14.0-18.0); LYMPH# 0.88 X1000 (1.2-3.4); LYMPH% 18.4 % (20.5-51.1); MCV 91.1 FL (81-99); MONO# 0.14 X1000 (0.11-0.59); MONO% 2.9 % (1.7-9.3); MPV 10.1 FL (7.4-10.4); NEUT% 78.5 % (42.2-75.2); PLT 161 X1000 (130-400); RBC 4.62 XMIL (4.7-6.1)
[2017-02-03 06:48] LABS: AGAP 11; BUN 13 mg/dL (8-22); CALCIUM 9.1 mg/dL (8.8-10.2); CHLORIDE 105 mmol/L (98-107); COSMO 280; POTASSIUM 4.5 mmol/L (3.5-5.1); SODIUM 140 mmol/L (136-145); TCO2 24 mmol/L (25-35)
--- NOTE | 2017-02-03 07:02 | EKG Report ---
Test Performed on : 02/02/2017 2:34:33 PM Test Reason : No Order in [employer] Blood Pressure : / mmHG Vent. Rate : 103 BPM Atrial Rate : 103 BPM P-R Int : 146 ms QRS Dur : 096 ms QT Int : 330 ms P-R-T Axes : 071 059 070 degrees QTc Int : 432 ms Sinus tachycardia. Otherwise normal ECG When compared with ECG of 31-JAN-2017 17:15, (Unconfirmed) Vent. rate has increased BY 37 BPM Unconfirmed Result
[2017-02-03] MEDS ORDERED: MOBIC PO SCH (09:00)
[2017-02-03] MEDS ORDERED: RIFAMPIN PO SCH (09:00)
[2017-02-03] MEDS ORDERED: FLONASE NAS SCH (09:00)
[2017-02-03] MEDS ORDERED: BUSPAR PO SCH (09:00)
[2017-02-03] MEDS ORDERED: MYAMBUTOL PO SCH (09:00)
[2017-02-03 10:24] VITALS: BP 108/65
[2017-02-03] MEDS ORDERED: PRAVACHOL PO SCH (21:00)
--- NOTE | 2017-02-04 07:12 | DISCHARGE SUMMARY ---
ADMISSION DATE: 02/02/2017 DISCHARGE DATE: 02/03/2017 PRIMARY CARE PHYSICIAN: Dr. Vergara. ADMISSION DIAGNOSES: 1. An acute chronic obstructive pulmonary disease exacerbation. 2. Chronic MAC infection. 3. Ongoing tobacco abuse. POSTOPERATIVE DIAGNOSES: 1. An acute chronic obstructive pulmonary disease exacerbation. 2. Chronic MAC infection. 3. Ongoing tobacco abuse. SUMMARY OF FINDINGS: This is a 56-year-old male who presented to [facility] with complaints of a 3-week history of progressively worsening shortness of breath. States that for the past 2-3 days he had been gasping for breath and having more cough symptoms. He had come to the emergency room and was evaluated. His workup was essentially negative. His O2 saturation on arrival was 96% on room air. His chest x-ray showed a stable cavitary lesion at the right lung apex; otherwise, chest unchanged. They obtained a chest CT that showed severe emphysema, a modest increase in the size of the cavitary mass at the right lung apex with increase in his cavitation, multiple new pulmonary nodules that were smaller than the dominant mass bilaterally, and are likely related to the patient's chronic mycobacterial infection. He was admitted, placed on IV antibiotics, IV steroids, DuoNebs. This a.m. the patient states he is feeling 100% better. Has been up ambulating in the sharma without his oxygen on. Denies any further shortness of breath. Has been 100% O2 saturation on room air. His lungs are clear this a.m., and it is felt he can safely be discharged home today. DISCHARGE MEDICATIONS: He will continue his home medications of: 1. BuSpar 5 mg p.o. b.i.d. 2. Ethambutol 400 mg 2 tablets p.o. q.a.m. 3. Flonase nasal spray 2 sprays nasally daily. 4. Mobic 15 mg p.o. daily. 5. Pravachol 40 mg p.o. q.a.m. 6. Rifampin 600 mg p.o. daily. 7. Ropinirole 4 mg p.o. at bedtime. 8. Tylenol 1000 mg p.o. q.6 hours. 9. ProAir. Inhalation as needed. 10. Continue his Z-Francesco. 11. Continue his DuoNeb 4 times daily. 12. Continue his Medrol Dosepak. 13. Continue his Phenergan codeine cough syrup, 2 teaspoons p.o. q.6 hours p.r.n., 14. Anoro Ellipta 1 puff inhalation daily. FOLLOWUP: He has an appointment scheduled in the morning with his primary care physician. I believe he said it was at 10 a.m. He is to keep this appointment. All discharge instructions have been reviewed with the patient and he verbalized understanding. DISCHARGE TIME: 35 minutes. Dictated by AGNES Adams for Aidan Arzola MD
== END 2017-02-03 14:32 | disposition home or self-care (01) ==
LOC: ED 14:25 → INTOOBSV 22:07 → 4N 22:07
PROVIDERS: ATTEND Internal Medicine
DX: J44.0 Chronic obstructive pulmonary disease with (acute) lower respiratory infection (principal); A31.0 Pulmonary mycobacterial infection; J44.1 Chronic obstructive pulmonary disease with (acute) exacerbation; F17.210 Nicotine dependence, cigarettes, uncomplicated; R91.8 Other nonspecific abnormal finding of lung field; E78.5 Hyperlipidemia, unspecified; R06.02 Shortness of breath; R50.9 Fever, unspecified; I25.10 Atherosclerotic heart disease of native coronary artery without angina pectoris; I25.2 Old myocardial infarction; K29.70 Gastritis, unspecified, without bleeding; G89.29 Other chronic pain; Z79.51 Long term (current) use of inhaled steroids; Z79.1 Long term (current) use of non-steroidal anti-inflammatories (NSAID); Z79.899 Other long term (current) drug therapy; Z82.49 Family history of ischemic heart disease and other diseases of the circulatory system; Z71.6 Tobacco abuse counseling
CPT/HCPCS: 71010; 71260; 80048; 80053; 81001; 82805; 83605; 83880; 84484; 85025; 87040; 93005; 94640; 94761; 94799; J0696; J2930; J7040; Q9967

== ENCOUNTER 2019-06-28 20:25 | Inpatient (IN) ==
--- NOTE | 2019-06-28 20:54 | PROVIDER DOCUMENTATION ---
HPI-Respiratory General - General Chief Complaint: Shortness of Breath Stated Complaint: sob Time Seen by Provider: 06/28/19 20:38 Allergies/Adverse Reactions: Patient Allergies Allergy/AdvReac Type Severity Reaction Status Date / Time aspirin Allergy ABDOMINAL Verified 06/15/19 13:20 PAIN naproxen AdvReac ABDOMINAL Verified 06/15/19 13:20 PAIN Home Medications: Home Medication List Medication Instructions Recorded Confirmed Last Taken Type Ethambutol [Myambutol] 2 tab PO QAM 04/30/15 12/06/18 12/05/18 History PRAVAstatin [Pravachol] 40 mg PO QAM 10/10/15 12/06/18 12/05/18 History Buspirone HCl [Buspar] 5 mg pe PO BID 02/23/16 12/06/18 12/05/18 History Ropinirole [Requip] 4 mg PO HS 02/23/16 12/06/18 12/05/18 History Umeclidinium Brm/Vilanterol Tr 1 puff INH DAILY 02/23/16 12/06/18 12/05/18 History [Anoro Ellipta 62.5-25 Mcg INH] Albuterol Sulfate [Proair Hfa] 8.5 gm IH PRN PRN 04/05/16 12/06/18 12/05/18 History Ipratropium/Albuterol Sulfate 3 ml IH 4XDAY 04/05/16 12/06/18 12/05/18 History [Iprat-Albut 0.5-3(2.5) mg/3 ml] Meloxicam 15 mg PO DAILY 01/31/17 12/06/18 12/05/18 History Rifampin [Rifadin] 600 mg PO DAILY 01/31/17 12/06/18 12/05/18 History Acetaminophen [Tylenol] 1,000 mg PO Q6H PRN 05/18/18 12/06/18 12/05/18 History Azithromycin 750 mg PO QAM 05/18/18 12/06/18 12/05/18 History Ciprofloxacin HCl [Cipro] 500 mg PO Q12H 05/18/18 12/06/18 12/05/18 History Gabapentin 300 mg PO DAILY 05/18/18 12/06/18 12/05/18 History Lisinopril 2.5 mg PO DAILY 05/18/18 12/06/18 12/05/18 History Sulfamethoxazole/Trimethoprim 2 each PO DAILY 05/18/18 12/06/18 12/05/18 History [Bactrim Ds Tablet] Fluconazole [Diflucan] 100 mg PO ORDERED #14 tab 12/06/18 Unknown Rx Ketoconazole 15 gm TP TID 30 Days #1 cream..g. 12/06/18 Unknown Rx Albuterol 2.5MG/Ipratrop 0.5MG 3 ml INH Q4-6H PRN PRN #1 b 06/15/19 Unknown Rx [Duoneb] Guaifenesin E.r. [Mucinex] 600 mg PO Q12HR #6 tab 06/15/19 Unknown Rx Prednisone 40 mg PO DAILY #5 tab 06/15/19 Unknown Rx - History of Present Illness-Resp Nature of Presenting Problem: [id number] presents to the ER with c/o increasing SOB over the last 2 days. He states that he is on 2L NC at home and smoke 1 1/2 PPD. Patient has a history of COPD and MAC infection. He has been recently seen by Dr Rodriguez in April. Onset/Duration: reports: 2 days ago Cough Quality/Degree: reports: productive cough, sputum Episode Frequency: frequent episodes Similar Symptoms Previously?: Yes Recently seen or treated by another doctor?: Yes Review of Systems - Adult - REVIEW OF SYSTEMS - ADULT Constitutional: reports: see HPI. denies: chills, fever Eyes: reports: no symptoms reported Ears, Nose, Mouth & Throat: reports: no symptoms reported. denies: sinus problem, throat pain, throat swelling Cardiovascular: reports: see HPI, orthopnea. denies: chest pain, palpitations Respiratory: reports: see HPI, cough, dyspnea on exertion, shortness of breath, wheezing. denies: hemoptysis Gastrointestinal: reports: no symptoms reported Genitourinary: reports: no symptoms reported Musculoskeletal: reports: no symptoms reported Integumentary: reports: no symptoms reported Neurological: reports: no symptoms reported Psychiatric: reports: no symptoms reported Endocrine: reports: no symptoms reported Hematologic/Lymphatic: reports: no symptoms reported Allergic/Immunologic: reports: no symptoms reported All Other Systems: Reviewed and Negative Past History - Adult - PAST MEDICAL HISTORY-ADULT Review of Records: reports: Old Records Reviewed, Nursing Assessment Review, Medications Reviewed, Social history reviewed & non-contributory. Major Childhood Illnesses: reports: denies history Cardiovascular: reports: CAD, hyperlipidemia, [place] Respiratory: reports: COPD, other (MAC) Gastrointestinal: reports: other (gastritis) Obstetrical/Gynecological: reports: denies history Genitourinary: reports: denies history Musculoskeletal: reports: chronic pain (back), intervertebral disc disease Neurological: reports: denies history Endocrine/Immune: reports: denies history Other Conditions: reports: denies history - PRIOR SURGERIES/PROCEDURES Surgical/Procedure History: reports: joint replacement, other (lung, chest tube x3) - IMMUNIZATION STATUS Childhood Immunizations: UTD Flu Vaccine: See Nurse Assessment - FAMILY HISTORY Family History: reviewed, not pertinent, HTN - SOCIAL HISTORY Smoking: greater than 1 pack/day Provider spent 3-5 mins advising pt. on dangers of tobacco.: Discussed manners to quit use, and f/u contacts for add'l counseling. Substance Use: denies Living Situation: family Physical Exam-General - PHYSICAL EXAM-ADULT Initial Vital Signs Reviewed: Yes - CONSTITUTIONAL General Appearance: alert, moderate distress - EYES Eyes: PERRL/EOMI, pink conjunctivae - HEAD, EARS, NOSE, MOUTH & THROAT HENMT: normocephalic/atraumatic, moist mucous membranes, normal ENT inspection - NECK Neck: non-tender, full range of motion, supple - RESPIRATORY Respiratory: chest non-tender, decreased breath sounds, accessory muscle use, wheezing - CARDIOVASCULAR Cardiovascular: normal peripheral pulses, regular rate, rhythm - GASTROINTESTINAL (ABDOMEN) Abdominal Exam: normal bowel sounds, non tender, soft - LYMPHATIC Lymphatic: no adenopathy - MUSCULOSKELETAL Back Exam: normal inspection Extremity: normal range of motion, non-tender Peripheral Pulses: radial (R): 2+, radial (L): 2+ - SKIN Integumentary: normal color, normal turgor, warm/dry - NEUROLOGIC Neurologic: grossly normal - PSYCHIATRIC Psych/Mental Status: normal mood/affect, oriented x 3 - HEART Score HEART Score: History: Slightly Suspicious HEART Score: ECG: Normal HEART Score: Age: 45-65 Years HEART Score: Risk Factors for Atherosclerotic Disease: 1 or 2 Risk Factors HEART Score: Troponin: < or = Normal Limit Total HEART Score:: 2 Progress - PLAN OF CARE/RESULTS Progress/Plan/Lab Results: Vital Signs - 8 hr 06/28/19 20:43 06/28/19 21:09 06/28/19 21:44 Temperature 98.0 F Pulse Rate 102 H 100 H 100 H Respiratory Rate 20 18 18 Blood Pressure 83/59 O2 Sat by Pulse Oximetry 96 96 Laboratory Results - last 24 hr 06/28/19 06/28/19 06/28/19 20:40 20:40 20:40 WBC 5.55 RBC 4.70 Hgb 14.6 Hct 42.6 MCV 90.6 MCH 31.1 H MCHC 34.3 RDW Std Deviation 13.7 Plt Count 167 MPV 9.6 Immature Gran % (Auto) 0.0 Neut % (Auto) 72.2 Lymph % (Auto) 15.3 L [place] % (Auto) 10.5 H Eos % (Auto) 1.6 Baso % (Auto) 0.4 Immature Gran # (Auto) 0.00 Neut # (Auto) 4.01 Lymph # (Auto) 0.85 L [place] # (Auto) 0.58 Eos # (Auto) 0.09 Baso # (Auto) 0.02 Sodium 141 Potassium 4.7 Chloride 104 Carbon Dioxide 29 Anion Gap 8 BUN 17 Creatinine 0.7 Estimated GFR/1.73 m2 > 60 BUN/Creatinine Ratio 24 Glucose 114 H Calculated Osmolality 284 Calcium 9.3 Total Bilirubin < 0.15 L AST 16 ALT 14 Alkaline Phosphatase 93 Creatine Kinase 69 Troponin T Total Protein 6.9 Albumin 4.1 Globulin 2.8 Albumin/Globulin Ratio 1.5 06/28/19 20:40 WBC RBC Hgb Hct MCV MCH MCHC RDW Std Deviation Plt Count MPV Immature Gran % (Auto) Neut % (Auto) Lymph % (Auto) [place] % (Auto) Eos % (Auto) Baso % (Auto) Immature Gran # (Auto) Neut # (Auto) Lymph # (Auto) [place] # (Auto) Eos # (Auto) Baso # (Auto) Sodium Potassium Chloride Carbon Dioxide Anion Gap BUN Creatinine Estimated GFR/1.73 m2 BUN/Creatinine Ratio Glucose Calculated Osmolality Calcium Total Bilirubin AST ALT Alkaline Phosphatase Creatine Kinase Troponin T < 0.010 Total Protein Albumin Globulin Albumin/Globulin Ratio Orders Category Date Time Status CHEST-2 VIEWS [RAD] Stat Exams 06/28/19 20:48 Completed CBC WITH ELECTRONIC DIFF [HEME] Stat Lab 06/28/19 20:40 Completed CK PROFILE [SP CHEM] Stat Lab 06/28/19 20:40 Completed COMPREHENSIVE METABOLIC PANEL [CHEM] Stat Lab 06/28/19 20:40 Completed TROPONIN T Stat Lab 06/28/19 20:40 Completed Albuterol 2.5MG/Ipratrop 0.5MG [Duoneb (A & A)] Med 06/28/19 20:55 Discontinued 3 ml INH NOW ONE Albuterol 2.5MG/Ipratrop 0.5MG [Duoneb (A & A)] Med 06/28/19 21:28 Discontinued 3 ml INH NOW ONE Methylprednisolone Sod Succ [Solu-Medrol] Med 06/28/19 20:55 Discontinued 40 mg IV NOW ONE Aerosol Treatments Routine Oth 06/28/19 20:55 Completed Aerosol Treatments Stat Oth 06/28/19 20:55 Completed EKG [EKG] Stat Ther 06/28/19 20:27 Draft Result Diagrams: 06/28/19 20:40 06/28/19 20:40 - EKG 1 Time of EKG reading by physician:: 20:33 EKG Read and Signed by:: Florentin Griffith EKG Interpretation (*Must complete 3 of following elements*): Abnormal Rate: 110 Rhythm: st Venus: normal QRS: normal MO Interval: normal ST Wave: normal - CONSULTS/PCP/HOSPITALIST Notification #1 *Consult/PCP/Hospitalist*: Dr Penny Time Discussed: 22:02 Reason/Comments: COPD Exacerbation Consult Disposition: Admit Departure - Departure Date of Disposition Decision: 06/28/19 Time of Disposition Decision: 22:03 DIAGNOSIS: COPD exacerbation Disposition: ADMITTED INPATIENT 09 Certified Medical Emergency: Emergent Condition: Critical Additional Freetext Instructions: ED Follow Up Instructions: You have been treated by a care provider in the Emergency Department. These instructions are being provided to you so you can have an understanding of how to care for yourself upon discharge. Upon discharge from the Emergency Department, you are responsible for making arrangements for follow-up care by a physician of your choice. Take all prescribed medications as directed. Return to the Emergency Department immediately for any new or worsening symptoms. You may call the Physician Referral phone number at [phone] to obtain a list of Physicians who are taking new patients. Referrals and Follow-Ups: Carina Vegrara MD [Primary Care Provider] - - Critical Care Note This patient required my direct & personal management of CC.: No Attestation - Physician/ MALORIE Attestation Patient care was provided by Advanced Practice Provider:: Yes Advanced Practice Provider:: Roman Brantley Advanced Practice Provider documentation review:: The Mid-level provider documentation, treatment plan and medical decision making was reviewed by the physician who agrees with all treatment and medical decision making by the MLP. The physician spent face to face time with patient:: No Advanced Practice Provider documentation review:: Supervising physician onsite and consulted in the evaluation and care of this patient. The physician did not have a face to face encounter with the patient.
[2019-06-28] MEDS ORDERED: DUONEB (A & A) INH ONE ×2 (20:55→21:28)
[2019-06-28] MEDS ORDERED: SOLU-MEDROL IV ONE (20:55)
--- NOTE | 2019-06-28 21:03 | EKG Report ---
Test Performed on : 06/28/2019 8:29:09 PM Test Reason : sob Blood Pressure : / mmHG Vent. Rate : 110 BPM Atrial Rate : 110 BPM P-R Int : 156 ms QRS Dur : 094 ms QT Int : 320 ms P-R-T Axes : 078 071 083 degrees QTc Int : 433 ms Sinus tachycardia. Right atrial enlargement Cannot rule out Anterior infarct (cited on or before 15-JUN-2019) Abnormal ECG When compared with ECG of 15-JUN-2019 13:13, (Unconfirmed) No significant change was found Unconfirmed Result
--- NOTE | 2019-06-28 21:04 | Diag Imaging Result Doc PS360 ---
EXAM: CHEST-2 VIEWS 06/28/2019 HISTORY: SOB TECHNIQUE: PA and lateral chest COMMENT: There is COPD and severe fibrotic change in the right upper lobe with retraction of the hilum superiorly. There may be some cavity formation and/or bronchiectasis in the right apex. The appearance the chest has not changed significantly since 06/15/2019. Compared to 03/14/2019 the pleural thickening is slightly worse. 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 Essentially stable since 06/15/2019. Electronically signed by Ruben Wagoner 06/28/2019 9:01 PM
[2019-06-28 21:17] LABS: BASO# 0.02 X1000 (0.0-0.2); BASO% 0.4 % (0.0-0.8); EOS# 0.09 X1000 (0.0-0.7); EOS% 1.6 % (0.0-10.0); HEMATOCRIT 42.6 % (42.0-52.0); HEMOGLOBIN 14.6 g/dL (14.0-18.0); LYMPH# 0.85 X1000 (1.2-3.4); LYMPH% 15.3 % (20.5-51.1); MCH 31.1 PG (27-31); MCHC 34.3 g/dL (33-37); MCV 90.6 FL (81-99); MONO# 0.58 X1000 (0.11-0.59); MONO% 10.5 % (1.7-9.3); MPV 9.6 FL (7.4-10.4); NEUT# 4.01 X1000 (1.4-6.5); NEUT% 72.2 % (42.2-75.2); PLT 167 X1000 (130-400); RDW 13.7 % (11.5-14.5); WBC 5.55 X1000 (4.8-10.8)
[2019-06-28 21:46] LABS: AGAP 8; ALB/GLOB RATIO 1.5; ALBUMIN 4.1 g/dL (3.5-5.0); ALKALINE PHOSPHATASE 93 U/L (32-122); BUN 17 mg/dL (8-22); CALCIUM 9.3 mg/dL (8.8-10.2); CHLORIDE 104 mmol/L (98-107); COSMO 284; CREATININE 0.7 mg/dL (0.7-1.2); ESTIMATED GFR > 60; GLUCOSE 114 mg/dL (70-104); GOT 16 U/L (10-34); GPT 14 U/L (10-44); POTASSIUM 4.7 mmol/L (3.5-5.1); SODIUM 141 mmol/L (136-145); TCO2 29 mmol/L (25-35); TOTAL BILIRUBIN < 0.15 mg/dL (0.20-1.00); TOTAL PROTEIN 6.9 g/dL (6.3-8.3)
[2019-06-28 22:11] LABS: ALLEN TEST YES; BE 5.5 mmoll (-3.0-3.0); BLOOD TYPE ARTERIAL; HCO3-(ACT) 28.9 mmoll (20.0-26.0); METHB 0.8 % (0.0-1.5); O2(CT) 17.9 mL/dL (15.0-23.0); PO2(98.6) 96 mmHg (60-100); SAMPLE BLOOD; SAO2 98.7 % (95.0-100.0); THB 14.4 g/dL (11.5-17.4); pH(98.6) 7.33 (7.35-7.45)
[2019-06-28 22:12] LABS: MODALITY CANNULA
[2019-06-28 22:15] LABS: PCO2(98.6) 64 mmHg (35-45)
[2019-06-28 22:17] LABS: O2HB 87.8 % (95.0-99.0)
[2019-06-29] MEDS ORDERED: NICODERM PATCH TD STA (00:27)
[2019-06-29] MEDS ORDERED: ZOFRAN IV PRN (00:27)
[2019-06-29] MEDS ORDERED: TYLENOL PO PRN (00:27)
--- NOTE | 2019-06-29 00:53 | HISTORY AND PHYSICAL ---
PHYSICIAN: Patient of Dr. Rodriguez and a patient of Dr. Carina Vergara. REASON FOR ADMISSION: One to two-day history of worsening shortness of breath. HISTORY OF PRESENT ILLNESS: Mr. 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 He says since September of last year he has been having intermittent episodes of shortness of breath which would last a few days and get better on their own without any aggressive intervention. However, over the last couple of weeks he says the frequency of these episodes have been increasing, i.e., every 1 to 2 days. He came in today not only because of increased frequency but because his breathing had gotten worse over the last 2 days such that even with movement of his upper extremities he gets profoundly short of breath. He has been using his nebulizer treatments faithfully without any significant improvement. He attributes these symptoms to the increasing heat wave we have been experiencing over the last couple of weeks. He has a chronic cough with history of faint yellowish-green sputum but which has not changed color and he denies any hemoptysis. No fever, or chills or any acute leg swelling although he has a longstanding history of chronic left lower extremity swelling. There is not commonly redness. The patient has a longstanding history of 3 to 4 pillow orthopnea but this has not worsened. No PND. No chest pain. No palpitations or any other cardiorespiratory symptoms. His weight has been fluctuating off and on for the last couple of weeks but no profound progressive weight loss. No GI or complaints. REVIEW OF SYSTEMS: Twelve system review was done. Positive findings per HPI. ALLERGIES: Aspirin and naproxen. MEDICATION: Home medication list is notable for Anoro 1 puff daily, Zithromax 750 mg every morning, BuSpar 5 mg b.i.d., Cipro 500 mg q.12, gabapentin 200 mg daily, DuoNeb 4 times a day, ethambutol 800 mg in the morning, Pravachol 40 mg in the morning, ProAir 2 puffs p.r.n., Requip 4 mg at bedtime, rifampin 600 mg daily, DuoNeb q.4-q.6h p.r.n. SURGICAL HISTORY: He has had a right knee surgery and had recurrent chest tubes for recurrent pneumothorax. SOCIAL HISTORY: Smokes 1-1/2 packs a day. Plans to quit. No alcohol or illicit drug use. Lives alone. FAMILY HISTORY: No heart disease, diabetes or lung disease in first-degree relatives. LABORATORY WORK: Notable for white count of 5000, hemoglobin and hematocrit 14 and 42, platelets 167,000. Glucose 114, BUN 17, creatinine 0.7. Troponin is negative. Blood gas, pH 7.33, pCO2 of 64, PO2 is 96, bicarbonate, carboxyhemoglobin is 10, this is on FiO2 of 32. Chest film showed COPD with reactive granulomatous disease. PHYSICAL EXAMINATION: GENERAL: Chronically ill-appearing man who is with a BMI of only 18. He is alert, oriented to person, time with normal mood and affect. VITAL SIGNS: His blood pressure is 127/58, heart rate is 103, respirations 20, temperature is 98 degrees with 98% O2 saturation on 3 L. HEENT: Head is normocephalic, atraumatic. Eyes, TOBIAS, EOMI. He is anicteric and not pale. ENT exam is grossly normal. No central cyanosis noted. No pharyngeal exudates. NECK: Supple. No JVD or carotid bruit. No thyromegaly. The patient has shotty lymph nodes in both axillae that are mobile and firm to touch. CHEST: His chest exam slightly bow shaped. Decreased entry in both lung alexander. Scattered expiratory wheezes. CARDIOVASCULAR: First and second heart sounds heard. No gallops, murmurs, rubs. Rhythm is regular. ABDOMEN: Scaphoid, soft. No tenderness. No masses or organomegaly. Bowel sounds are normal. RECTAL: Exam deferred. EXTREMITIES: Patient has trace to 1+ pitting edema of the lower extremities, knees, ankles, but this is chronic per the patient. No thickened cords or redness noted. He has slightly diminished distal pulse volume symmetrically in all extremities, regular. He has clubbing, grade 1-2 clubbing of the digits. No peripheral cyanosis. NEUROLOGICAL: No gross focal deficits. No tremors. SKIN: Intact. No breakdown, lesions, or erythema. MUSCULOSKELETAL: Exam is grossly normal. ASSESSMENT: 1. Chronic obstructive pulmonary disease exacerbation. 2. Acute on chronic respiratory failure. 3. Chronic mycobacterium avium complex disease. 4. Tobacco use. 5. Restless legs syndrome. PLAN: We will continue with long and short acting bronchodilators. We will consult Dr. Rodriguez, who is his winery worker, for further input. For now, patient does not appear to be in extremis requiring BiPAP although he has early signs of CO2 retention and mild respiratory acidosis. For now, we will just get by with incentive spirometry. May recommend repeating another ABG in a day or two to see if this helps with increased ventilation. Smoking cessation was reiterated with the patient and he does say he wanted to quit but based on his body language I am not truly convinced of this. We will keep patient on moderate doses of steroids as I doubt if any high doses will benefit this patient and higher dose may even bring on additional unwanted side effects which are not needed in this patient. The patient will also be started on a NicoDerm patch to aid with his smoking cessation and may benefit with either lozenges or gum in addition to the patch if he so desires. cc: MD Sulaiman Khanna MD Emily M. McClure, MD [facility]-FINE HOSPITALIfeanyi
[2019-06-29] MEDS: CIPRO PO SCH ×2 (02:29→12:06)
[2019-06-29] MEDS: LOVENOX SUBQ SCH (02:29)
[2019-06-29 05:59] LABS: BASO# 0.01 X1000 (0.0-0.2); BASO% 0.3 % (0.0-0.8); EOS# 0.02 X1000 (0.0-0.7); EOS% 0.5 % (0.0-10.0); HEMATOCRIT 40.9 % (42.0-52.0); HEMOGLOBIN 13.6 g/dL (14.0-18.0); LYMPH# 0.72 X1000 (1.2-3.4); LYMPH% 18.3 % (20.5-51.1); MCH 30.6 PG (27-31); MCHC 33.3 g/dL (33-37); MCV 91.9 FL (81-99); MONO# 0.23 X1000 (0.11-0.59); MONO% 5.8 % (1.7-9.3); MPV 9.2 FL (7.4-10.4); NEUT# 2.96 X1000 (1.4-6.5); NEUT% 75.1 % (42.2-75.2); PLT 143 X1000 (130-400); RBC 4.45 XMIL (4.7-6.1); RDW 13.7 % (11.5-14.5); WBC 3.94 X1000 (4.8-10.8)
[2019-06-29 06:10] LABS: AGAP 6; BUN 12 mg/dL (8-22); CALCIUM 9.4 mg/dL (8.8-10.2); CHLORIDE 100 mmol/L (98-107); COSMO 276; CREATININE 0.4 mg/dL (0.7-1.2); ESTIMATED GFR > 60; GLUCOSE 105 mg/dL (70-104); POTASSIUM 4.5 mmol/L (3.5-5.1); SODIUM 138 mmol/L (136-145); TCO2 32 mmol/L (25-35)
[2019-06-29] MEDS ORDERED: BROVANA NEB ONE (07:19)
[2019-06-29] MEDS: ZITHROMAX PO SCH (08:12)
[2019-06-29] MEDS: PREDNISONE PO SCH (08:12)
[2019-06-29] MEDS: NEURONTIN PO SCH (08:12)
[2019-06-29] MEDS: RIFAMPIN PO SCH (08:13)
[2019-06-29] MEDS: MYAMBUTOL PO SCH (08:14)
[2019-06-29] MEDS: PRAVACHOL PO SCH (08:18)
[2019-06-29] MEDS: DUONEB (A & A) INH SCH ×5 (08:40→22:59)
[2019-06-29] MEDS ORDERED: BUSPAR PO SCH (09:00)
[2019-06-29 09:39] LABS: ALLEN TEST YES; BE 5.2 mmoll (-3.0-3.0); BLOOD TYPE ARTERIAL; HCO3-(ACT) 28.9 mmoll (20.0-26.0); METHB 1.2 % (0.0-1.5); O2(CT) 18.9 mL/dL (15.0-23.0); O2HB 93.3 % (95.0-99.0); PO2(98.6) 101 mmHg (60-100); SAMPLE BLOOD; SAO2 99.1 % (95.0-100.0); THB 14.3 g/dL (11.5-17.4); pH(98.6) 7.32 (7.35-7.45)
[2019-06-29 09:45] LABS: PCO2(98.6) 65 mmHg (35-45)
[2019-06-29 09:46] LABS: MODALITY CANNULA
[2019-06-29] MEDS: BUSPAR PO SCH ×2 (12:06→21:08)
--- NOTE | 2019-06-29 18:35 | PULMONOLOGY CONSULTATION ---
DATE: 06/29/2019 REQUESTING PHYSICIAN: Dr. Penny. REASON FOR CONSULTATION: COPD with mycobacterium avium complex disease. HISTORY OF PRESENT ILLNESS: Mr. 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 The patient is on multiple different antibiotics for this regimen and will likely continue this regimen for life. Unfortunately, patient continues to smoke and has had progressive loss in lung function. Patient presented to emergency room with 1 to 2 day history of increased cough with increased sputum production. Arterial blood gas in the emergency room revealed a pH of 7.33, pCO2 of 64, pO2 of 96 with a significant increase in his carboxyhemoglobin level of 10.2. PAST MEDICAL HISTORY: 1. Severe COPD with ongoing tobacco use as per above. 2. Mycobacterium avium complex disease. 3. Tsukamurella pulmonis infection. 4. History of mild heart attack/CAD several years ago by his report. 5. Restless leg syndrome. 6. Prior exposure to asbestos. SOCIAL HISTORY: The patient continues to smoke greater than or equal to at least 1 pack per day. No significant alcohol use. FAMILY HISTORY: Positive for asbestos related lung disease in a sister. REVIEW OF SYSTEMS: As noted in the HPI but is otherwise negative. The patient does have dyspnea on exertion, increased sputum production, urinary urgency. PHYSICAL EXAMINATION: General: Reveals a thin white male who is chronically ill-appearing and appears much older than his stated age of 59. BP 108/65, heart rate 70, respiratory rate 18, oxygen saturation 100% on nasal cannula. HEENT: Pupils are equal and reactive. Oropharynx appears clear. Neck: Supple. Chest: Reveals coarse rhonchi bilaterally with wheezing and prolonged expiratory phase. Cardiac: Distant heart sounds. Normal S1, normal S2. Abdomen: Soft. Extremities: Without edema. LABORATORIES: Chest x-ray reveals hyperinflation with significant emphysematous changes, probable component of bronchiectasis at the right base, scarring and cavity at the right apex. IMPRESSION: 1. A 59-year-old with severe chronic obstructive pulmonary disease. 2. Chronic obstructive pulmonary disease exacerbation. 3. Acute hypoxemic and acute hypercapnic respiratory failure. 4. Nicotine addiction. 5. Pulmonary cachexia. 6. 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 DISCUSSION: A 59-year-old problems outlined above. He does have ongoing sputum production and some lung destruction associated with his chronic infections. However, he is dying from end-stage COPD related to ongoing tobacco use. RECOMMENDATIONS: 1. Collect sputum for C and S to see if he has a bacterial pathogen which is not being covered with his broad-spectrum antibiotics. 2. Continue bronchial hygiene. 3. Cycle BiPAP at bedtime and p.r.n. 4. Continue oxygen for hypoxemia. 5. Strongly encourage patient to discontinue all tobacco products. As noted in the hospitalist admission H and P, patient is not motivated to stop smoking. cc: Sulaiman Rodriguez MD
[2019-06-29] MEDS: BROVANA NEB INH SCH (19:55)
[2019-06-29] MEDS ORDERED: REQUIP PO SCH (21:00)
[2019-06-30] MEDS: CIPRO PO SCH (02:45)
[2019-06-30] MEDS: LOVENOX SUBQ SCH (02:46)
[2019-06-30 06:18] LABS: ALLEN TEST YES; BE 7.8 mmoll (-3.0-3.0); BLOOD TYPE ARTERIAL; METHB 0.7 % (0.0-1.5); O2(CT) 18.5 mL/dL (15.0-23.0); O2HB 95.6 % (95.0-99.0); PO2(98.6) 86 mmHg (60-100); SAMPLE BLOOD; SAO2 98.3 % (95.0-100.0); THB 13.7 g/dL (11.5-17.4); pH(98.6) 7.34 (7.35-7.45)
[2019-06-30 06:20] LABS: MODALITY CANNULA; PCO2(98.6) 67 mmHg (35-45)
[2019-06-30] MEDS: BROVANA NEB INH SCH ×2 (06:31→07:28)
[2019-06-30] MEDS: DUONEB (A & A) INH SCH ×2 (07:28→11:25)
[2019-06-30] MEDS ORDERED: NICODERM PATCH TD SCH (09:00)
[2019-06-30] MEDS ORDERED: BROVANA NEB ONE (09:25)
[2019-06-30] MEDS: PREDNISONE PO SCH (10:14)
[2019-06-30] MEDS: PRAVACHOL PO SCH (10:14)
[2019-06-30] MEDS: NEURONTIN PO SCH (10:14)
[2019-06-30] MEDS: MYAMBUTOL PO SCH (10:15)
[2019-06-30] MEDS: BUSPAR PO SCH (10:15)
[2019-06-30] MEDS: RIFAMPIN PO SCH (10:16)
[2019-06-30] MEDS: ZITHROMAX PO SCH (10:16)
[2019-06-30 12:05] VITALS: BP 118/76
--- NOTE | 2019-06-30 13:44 | PULMONOLOGY PROGRESS NOTE ---
DATE: 06/30/2019 SUBJECTIVE: Patient is awake, alert, and conversant. He reports he feels better. His sputum production has diminished. He denies dyspnea at rest. OBJECTIVE: Vital Signs: The patient has been afebrile for the last 24 hours. Blood pressure 121/82, heart rate 60, respiratory rate 18, oxygen saturation 100% on nasal cannula. HEENT: Pupils are equal and reactive. Oropharynx appears clear. Neck: Supple. Chest: Reveals prolonged expiratory phase with scattered rhonchi. Cardiac: S1-S2. Abdomen: Soft. Extremities: Without edema. LABORATORIES: Sputum culture is pending. IMPRESSION: A 59-year-old with: 1. Severe chronic obstructive pulmonary disease with ongoing tobacco use. 2. Acute hypoxemic and hypercapnic respiratory failure. 3. Nicotine addiction. 4. Pulmonary cachexia. 5. Mycobacterium avium complex disease with a co-infection with to Tsukamurella pulmonis. DISCUSSION: A 59-year-old with problems outlined above. He continues to smoke excessively and his carboxyhemoglobin level was greater than 10 on presentation. Clinically, he is improved. He was encouraged to stop smoking immediately. He reports he will "cut back" but does not appear to be committed to smoking cessation. He is aware that smoking is actively shortening his life span. PLAN: 1. Agree with steroids and antibiotics with anticipation of discharge today. 2. Continue bronchial hygiene. 3. Continue oxygen for hypoxemic respiratory failure. 4. Strongly encouraged smoking cessation as outlined above. cc: Sulaiman Rodriguez MD
--- NOTE | 2019-06-30 15:21 | DISCHARGE SUMMARY ---
ADMISSION DATE: 06/29/2019 DISCHARGE DATE: 06/30/2019 ADMISSION DIAGNOSES: 1. Chronic obstructive pulmonary disease exacerbation. 2. Acute on chronic respiratory failure. 3. Chronic Mycobacterium avium complex disease. 4. Tobacco use. 5. Restless legs syndrome. DISCHARGE DIAGNOSES: 1. Copdx exacerbation. 2. Acute on chronic respiratory failure. 3. Chronic mycobacterium avium complex disease. 4. Tobacco abuse. 5. Restless legs syndrome. 6. Pulmonary cachexia. 7. 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 CONSULTATIONS: Dr. Rodriguez. PERTINENT SURGERIES AND PROCEDURES: None. HOSPITAL COURSE: Mr. Nicholas Jenkins is a 59-year-old male admitted on 06/28/2019 with a history of chronic MAC infection and COPD with emphysema having complaints of 1 or 2-day history of worsening shortness of breath, chronic cough with history of faint yellowish- green sputum, long- standing history of chronic left lower extremity swelling, long-standing history of 3 to 4 pillow orthopnea, fluctuation of weight on and off for the last few weeks with profound progressive weight loss was on oxygen 3 L, maintaining his O2 saturation. No fever, respiratory rate normal. He was diagnosed with chronic obstructive pulmonary disease exacerbation with acute on chronic respiratory failure. Dr. Rodriguez was consulted. He was put on long and short- acting bronchodilators early signs of CO2 retention. Mild respiratory acidosis. Smoking cessation was highly advised. He was seen by Dr. Rodriguez on the , ordered a sputum culture. The preliminary has no bacteria. He continued broad-spectrum antibiotics. Added BiPAP for at night and p.r.n. and readvised him to stop smoking. Vital signs remained stable. He was discharged home with his oxygen, with his azithromycin and Cipro and sent home with Bactrim DS, two tabs p.o. daily. DISCHARGE VITAL SIGNS: Temperature 98.4 degrees, heart rate 57, respiratory rate 18, blood pressure 121/82, O2 saturation 100% on 3 L. LAB DATA: White blood cells 3000, hemoglobin 13, hematocrit 40, platelet count 143,000. ABGs this morning pH 7.34, pCO2 67, PO2 86. Bicarb 31, base excess 7.8, saturation 95%. Lactate 0.8. Sodium 138, potassium 4.5, BUN 12, creatinine 0.4 glucose 105, calcium 9.4. IMAGING: Chest x-ray: COPD and reactive granulomatous disease in the right upper lobe essentially stable. EKG: Sinus tachycardia, rate 110, QTc 43 83. DISCHARGE MEDICATIONS: 1. Anoro Ellipta 62.5-25 mcg inhaled 1 puff daily. 2. Azithromycin 50 mg p.o. daily. That is a chronic antibiotic for him. 3. Cipro 500 mg p.o. every 12 hours. Also a chronic antibiotic for him. 4. BuSpar 5 mg p.o. twice daily. 5. Neurontin 300 mg p.o. daily. 6. Albuterol Atrovent 4 times daily. 7. Ethambutol 1200 mg p.o. daily. 8. Pravachol 40 mg p.o. daily. 9. ProAir. 8.5 g inhaled p.r.n. 10. Requip 4 mg p.o. nightly. 11. Rifampin 600 mg p.o. daily. 12. Duo nebs inhaled every 4 - 6 hours p.r.n. 13. Bactrim DS 2 tabs p.o. daily. DISCHARGE ACTIVITY: As tolerated. DISCHARGE DIET: Regular. DISCHARGE PHYSICIAN FOLLOWUPS: 1. Dr. Carina Vergara on 07/07/2019 at 10:20[address] 2[address]. Rodriguez. DISCHARGE INSTRUCTIONS: Notify physician of fever 101 or above, chest pain, shortness of breath. If your condition changes, contact physician and return to the emergency department. Dangers include but are not limited to, shortness of breath, increased fatigue, excessive bleeding current point weight loss or gain, unmanageable pain, signs or symptoms of infection. DISCHARGE DISPOSITION: Home. Dictated by AGNES Ospina for Aidan Arzola MD Addendum: Patient seen and examined by myself. Agree with AGNES note. It reflects my assessment and plan. Patient is being discharged in stable condition. Will be seen by primary care doctor in a week. Patient advised strongly about stop smoking completely. cc: AGNES Ospina MD [facility]
== END 2019-06-30 12:45 | disposition home or self-care (01) | DRG 189 ==
LOC: SUPCPDRO → ED 20:25 → 4N 06-29 00:05 → SUATTDRO 06-29 00:05
PROVIDERS: ATTEND Internal Medicine

== ENCOUNTER 2019-10-11 13:36 | Inpatient (IN) ==
[2019-10-11 14:42] LABS: BASO# 0.02 X1000 (0.0-0.2); BASO% 0.5 % (0.0-0.8); EOS# 0.07 X1000 (0.0-0.7); EOS% 1.7 % (0.0-10.0); HEMATOCRIT 39.9 % (42.0-52.0); LYMPH# 0.45 X1000 (1.2-3.4); LYMPH% 10.9 % (20.5-51.1); MCH 30.2 PG (27-31); MCHC 32.6 g/dL (33-37); MCV 92.8 FL (81-99); MONO% 9.7 % (1.7-9.3); MPV 9.1 FL (7.4-10.4); NEUT% 77.2 % (42.2-75.2); PLT 207 X1000 (130-400); RDW 12.1 % (11.5-14.5); WBC 4.14 X1000 (4.8-10.8)
[2019-10-11 14:50] LABS: INR 1.14; PROTIME 14.8 Seconds (11.0-16.0); PTT 36.7 Seconds (22.3-41.8)
[2019-10-11 15:26] LABS: AGAP 12; ALB/GLOB RATIO 1.2; ALBUMIN 3.7 g/dL (3.5-5.0); ALKALINE PHOSPHATASE 71 U/L (32-122); BUN 9 mg/dL (8-22); CALCIUM 9.4 mg/dL (8.8-10.2); CHLORIDE 93 mmol/L (98-107); CK PROFILE 46 U/L (24-204); COSMO 275; CREATININE 0.6 mg/dL (0.7-1.2); ESTIMATED GFR > 60; GLUCOSE 146 mg/dL (70-104); GOT 14 U/L (10-34); GPT 13 U/L (10-44); SODIUM 137 mmol/L (136-145); TCO2 32 mmol/L (25-35); TOTAL BILIRUBIN 0.23 mg/dL (0.20-1.00); TOTAL PROTEIN 6.9 g/dL (6.3-8.3)
[2019-10-11 16:37] LABS: URINE SOURCE CLEAN CATCH
[2019-10-11 16:43] LABS: BILIRUBIN URINE NEGATIVE (NEGATIVE); BLOOD URINE TRACE (NEGATIVE); COLOR YELLOW; GLUCOSE URINE NEGATIVE (NEGATIVE); KETONE URINE NEGATIVE (NEGATIVE); LEUKOCYTES URINE NEGATIVE (NEGATIVE); NITRITE URINE NEGATIVE (NEGATIVE); PH URINE 6.5; PROTEIN URINE NEGATIVE (NEGATIVE); SP GRAVITY URINE 1.017; TURBIDITY URINE CLEAR (CLEAR); UROBILINOGEN URINE NORMAL (NORMAL)
[2019-10-11 16:58] LABS: UR EPITHELIAL CELLS <10 /HPF (<10); URINE BACTERIA NEGATIVE /HPF; URINE RBC <10 /HPF (<10); URINE WBC <10 /HPF (<10)
[2019-10-12 07:21] LABS: BASO# 0.01 X1000 (0.0-0.2); BASO% 0.2 % (0.0-0.8); EOS# 0.02 X1000 (0.0-0.7); EOS% 0.5 % (0.0-10.0); HEMOGLOBIN 12.5 g/dL (14.0-18.0); LYMPH# 0.57 X1000 (1.2-3.4); LYMPH% 13.8 % (20.5-51.1); MCH 29.8 PG (27-31); MCHC 32.1 g/dL (33-37); MCV 92.9 FL (81-99); MONO# 0.39 X1000 (0.11-0.59); MONO% 9.4 % (1.7-9.3); MPV 9.2 FL (7.4-10.4); NEUT# 3.15 X1000 (1.4-6.5); NEUT% 76.1 % (42.2-75.2); PLT 224 X1000 (130-400); RDW 12.1 % (11.5-14.5); WBC 4.14 X1000 (4.8-10.8)
[2019-10-12 07:52] LABS: AGAP 9; BUN 8 mg/dL (8-22); CALCIUM 9.5 mg/dL (8.8-10.2); CHLORIDE 94 mmol/L (98-107); COSMO 270; CREATININE 0.5 mg/dL (0.7-1.2); ESTIMATED GFR > 60; GLUCOSE 132 mg/dL (70-104); POTASSIUM 4.3 mmol/L (3.5-5.1); SODIUM 135 mmol/L (136-145); TCO2 32 mmol/L (25-35)
[2019-10-13 08:06] LABS: AGAP 9; BUN 8 mg/dL (8-22); CALCIUM 9.3 mg/dL (8.8-10.2); CHLORIDE 92 mmol/L (98-107); COSMO 265; CREATININE 0.5 mg/dL (0.7-1.2); ESTIMATED GFR > 60; GLUCOSE 110 mg/dL (70-104); POTASSIUM 4.7 mmol/L (3.5-5.1); SODIUM 133 mmol/L (136-145); TCO2 32 mmol/L (25-35)
[2019-10-13 08:26] LABS: BASO# 0.01 X1000 (0.0-0.2); BASO% 0.3 % (0.0-0.8); EOS# 0.02 X1000 (0.0-0.7); EOS% 0.6 % (0.0-10.0); HEMOGLOBIN 12.2 g/dL (14.0-18.0); LYMPH# 0.44 X1000 (1.2-3.4); LYMPH% 13.8 % (20.5-51.1); MCH 29.8 PG (27-31); MCHC 32.1 g/dL (33-37); MCV 92.7 FL (81-99); MONO# 0.29 X1000 (0.11-0.59); MONO% 9.1 % (1.7-9.3); MPV 9.3 FL (7.4-10.4); NEUT# 2.42 X1000 (1.4-6.5); NEUT% 76.2 % (42.2-75.2); PLT 216 X1000 (130-400); RDW 11.9 % (11.5-14.5); WBC 3.18 X1000 (4.8-10.8)
[2019-10-13 15:37] VITALS: BP 118/74
== END 2019-10-13 21:00 | disposition home or self-care (01) | DRG 190 ==
LOC: ED 13:36 → SUATTDRO 21:10 → OBSVTOIN 21:10 → 3N 21:10 → INTOOBSV 21:10
PROVIDERS: ATTEND Internal Medicine

== ENCOUNTER 2019-10-21 18:53 | Inpatient (IN) ==
[2019-10-21] MEDS ORDERED: SOLU-MEDROL IV ONE (19:26)
[2019-10-21] MEDS ORDERED: DUONEB (A & A) INH ONE (19:26)
--- NOTE | 2019-10-21 19:59 | Diag Imaging Result Doc PS360 ---
EXAM: CHEST-1 VIEW INDICATION: SEPSIS PROTOCOL TECHNIQUE: One view COMPARISON: 10/11/2019 FINDINGS: There is severe COPD. There has been interval worsening of the airspace consolidation at the right lung base indicating worsening pneumonia. There is a small effusion that is larger than the previous study. No other new consolidation is identified. Cardiac silhouette is stable. IMPRESSION: Interval worsening of right basilar pneumonia. Electronically signed by Hever Pollard 10/21/2019 7:57 PM
[2019-10-21 20:04] LABS: INR 1.16
[2019-10-21 20:05] LABS: PTT 39.5 Seconds (22.3-41.8)
[2019-10-21 20:07] LABS: EOS# 0.05 X1000 (0.0-0.7); EOS% 1.3 % (0.0-10.0); HEMATOCRIT 35.9 % (42.0-52.0); HEMOGLOBIN 11.7 g/dL (14.0-18.0); LYMPH# 0.37 X1000 (1.2-3.4); LYMPH% 9.9 % (20.5-51.1); MCH 30.2 PG (27-31); MCHC 32.6 g/dL (33-37); MCV 92.5 FL (81-99); MONO# 0.54 X1000 (0.11-0.59); MONO% 14.4 % (1.7-9.3); MPV 9.2 FL (7.4-10.4); NEUT# 2.79 X1000 (1.4-6.5); NEUT% 74.4 % (42.2-75.2); PLT 185 X1000 (130-400); RBC 3.88 XMIL (4.7-6.1); RDW 11.9 % (11.5-14.5); WBC 3.75 X1000 (4.8-10.8)
[2019-10-21 20:13] LABS: AGAP 11; ALB/GLOB RATIO 1.1; ALBUMIN 3.5 g/dL (3.5-5.0); ALKALINE PHOSPHATASE 88 U/L (32-122); BUN 11 mg/dL (8-22); CHLORIDE 97 mmol/L (98-107); CK PROFILE 51 U/L (24-204); COSMO 279; CREATININE 0.5 mg/dL (0.7-1.2); ESTIMATED GFR > 60; GLUCOSE 140 mg/dL (70-104); GOT 12 U/L (10-34); GPT 14 U/L (10-44); POTASSIUM 4.3 mmol/L (3.5-5.1); SODIUM 139 mmol/L (136-145); TCO2 31 mmol/L (25-35); TOTAL BILIRUBIN 0.16 mg/dL (0.20-1.00); TOTAL PROTEIN 6.6 g/dL (6.3-8.3)
[2019-10-21 20:42] LABS: ALLEN TEST YES; BE 7.4 mmoll (-3.0-3.0); BLOOD TYPE ARTERIAL; HCO3-(ACT) 30.5 mmoll (20.0-26.0); METHB 1.1 % (0.0-1.5); O2(CT) 14.7 mL/dL (15.0-23.0); PO2(98.6) 91 mmHg (60-100); SAMPLE BLOOD; SAO2 98.3 % (95.0-100.0); THB 11.6 g/dL (11.5-17.4); pH(98.6) 7.39 (7.35-7.45)
[2019-10-21 20:45] LABS: MODALITY CANNULA; O2HB 89.2 % (95.0-99.0); PCO2(98.6) 56 mmHg (35-45)
[2019-10-21] MEDS ORDERED: VANCOMYCIN 1 GM/NS 1 GM/250 ML IVPB IV ONE (21:39)
[2019-10-21] MEDS ORDERED: ZOSYN 3.375 GM in NS 50 ML IV ONE (21:39)
--- NOTE | 2019-10-21 22:00 | PROVIDER DOCUMENTATION ---
This chart was entered by Natalya Michel Scribe, acting as scribe for Javier De La Cruz MD. HPI-General Adult - General Chief Complaint: Shortness of Breath Stated Complaint: SOB Time Seen by Provider: 10/21/19 19:25 Source: patient Allergies/Adverse Reactions: Patient Allergies Allergy/AdvReac Type Severity Reaction Status Date / Time aspirin Allergy ABDOMINAL Verified 10/21/19 21:14 PAIN naproxen AdvReac ABDOMINAL Verified 10/21/19 21:14 PAIN Home Medications: Home Medication List Medication Instructions Recorded Confirmed Last Taken Type Ethambutol [Myambutol] 3 tab PO QAM 04/30/15 10/21/19 10/11/19 History PRAVAstatin [Pravachol] 40 mg PO QAM 10/10/15 10/21/19 12/05/18 History Buspirone HCl [Buspar] 5 mg pe PO BID 02/23/16 10/21/19 10/11/19 History Ropinirole [Requip] 4 mg PO HS 02/23/16 10/21/19 10/10/19 History Umeclidinium Brm/Vilanterol Tr 1 puff INH DAILY 02/23/16 10/21/19 10/11/19 History [Anoro Ellipta 62.5-25 Mcg INH] Albuterol Sulfate [Proair Hfa] 8.5 gm IH PRN PRN 04/05/16 10/21/19 12/05/18 History Ipratropium/Albuterol Sulfate 3 ml IH 4XDAY 04/05/16 10/21/19 12/05/18 History [Iprat-Albut 0.5-3(2.5) mg/3 ml] Rifampin [Rifadin] 600 mg PO DAILY 01/31/17 10/21/19 10/11/19 History Azithromycin 750 mg PO QAM 05/18/18 10/21/19 10/11/19 History Ciprofloxacin HCl [Cipro] 500 mg PO Q12H 05/18/18 10/21/19 10/11/19 History Gabapentin 300 mg PO DAILY 05/18/18 10/21/19 10/11/19 History Albuterol 2.5MG/Ipratrop 0.5MG 3 ml INH Q4-6H PRN PRN #1 b 06/15/19 10/21/19 Unknown Rx [Duoneb (A & A)] Sulfamethoxazole/Trimethoprim 2 ea PO DAILY 06/29/19 10/21/19 10/11/19 History [Sulfamethoxazole-Tmp Ds Tablet] - History of Present Illness -Gen Adult Nature of Presenting Problems: pt is a 59 yr old male presenting with increased shortness of breath and fever, onset today. pt recently admitted for pnuemonia, contiues to be on multiple ABX for same. pt admits increased his home O2 from 3l to 4 l today. pt denies chest pain. no relief with albuterol tx Location of Pain/Injury: reports: none Severity: reports: moderate Onset/Duration: reports: this morning Timing: reports: getting worse Context/Activities at Onset: reports: light activity Modifying Factors: improves with: other medication (ABX-no relief), other (increased o2, no relief) Associated Symptoms: reports: cough, fever/chills, shortness of breath. denies: chest pain, EENT symptoms Similar Symptoms Previously?: Yes Recently seen or treated by another doctor?: Yes Review of Systems - Adult - REVIEW OF SYSTEMS - ADULT Constitutional: reports: chills, fever, fatique Eyes: reports: no symptoms reported Ears, Nose, Mouth & Throat: denies: ear pain, sinus problem, throat pain Cardiovascular: denies: chest pain, palpitations, syncope Respiratory: reports: chronic cough, dyspnea on exertion, shortness of breath Gastrointestinal: denies: abdominal pain, nausea, vomiting Genitourinary: reports: no symptoms reported Musculoskeletal: reports: no symptoms reported Integumentary: reports: no symptoms reported Neurological: denies: dizziness/vertigo, headache/migraines, syncope Psychiatric: reports: no symptoms reported Endocrine: reports: no symptoms reported Hematologic/Lymphatic: reports: no symptoms reported Allergic/Immunologic: reports: no symptoms reported All Other Systems: Reviewed and Negative Past History - Adult - PAST MEDICAL HISTORY-ADULT Review of Records: reports: Old Records Reviewed, Nursing Assessment Review, Medications Reviewed, Social history reviewed & non-contributory. Major Childhood Illnesses: reports: denies history Cardiovascular: reports: CAD, hyperlipidemia, ID Respiratory: reports: COPD, other (MAC) Gastrointestinal: reports: other (gastritis) Obstetrical/Gynecological: reports: denies history Genitourinary: reports: denies history Musculoskeletal: reports: chronic pain (back), intervertebral disc disease Neurological: reports: denies history Endocrine/Immune: reports: denies history Other Conditions: reports: denies history - PRIOR SURGERIES/PROCEDURES Surgical/Procedure History: reports: joint replacement, other (lung, chest tube x3) - IMMUNIZATION STATUS Childhood Immunizations: UTD Flu Vaccine: See Nurse Assessment - FAMILY HISTORY Family History: reviewed, not pertinent, HTN - SOCIAL HISTORY Smoking: cigarettes, greater than 1 pack/day Provider spent 3-5 mins advising pt. on dangers of tobacco.: Discussed manners to quit use, and f/u contacts for add'l counseling. Substance Use: denies Living Situation: family Physical Exam-General - PHYSICAL EXAM-ADULT Initial Vital Signs Reviewed: Yes - CONSTITUTIONAL General Appearance: appears well, alert, no apparent distress, thin - EYES Eyes: PERRL/EOMI - HEAD, EARS, NOSE, MOUTH & THROAT HENMT: normocephalic/atraumatic, moist mucous membranes - NECK Neck: non-tender, full range of motion, supple, normal inspection - RESPIRATORY Respiratory: chest non-tender, no respiratory distress, no accessory muscle use - CARDIOVASCULAR Cardiovascular: normal peripheral pulses, no edema, tachycardia - GASTROINTESTINAL (ABDOMEN) Abdominal Exam: normal bowel sounds, non tender, soft - LYMPHATIC Lymphatic: no adenopathy - MUSCULOSKELETAL Back Exam: normal inspection Extremity: normal range of motion, non-tender, normal gait, normal inspection - SKIN Integumentary: normal color, normal turgor, warm/dry - NEUROLOGIC Neurologic: grossly normal, no motor/sensory deficits - PSYCHIATRIC Psych/Mental Status: normal mood/affect Progress - PLAN OF CARE/RESULTS Progress/Plan/Lab Results: Vital Signs - 8 hr 10/21/19 19:08 Temperature 99.2 F Pulse Rate 106 H Respiratory Rate 18 Blood Pressure 110/67 O2 Sat by Pulse Oximetry 95 Laboratory Results - last 24 hr 10/21/19 19:30 PT 15.0 INR 1.16 Orders Category Date Time Status Cardiac Monitoring DIRECTED Care 10/21/19 19:22 Active IV Insertion ORDERED Care 10/21/19 19:22 Completed Notify MD of + Sepsis Screen NOW Care 10/21/19 19:22 Active CHEST-1 VIEW [RAD] Stat Exams 10/21/19 19:22 Completed ABG [RESP] Routine Lab 10/21/19 19:23 Ordered BLOOD CULTURE [BLDCUL] Stat Lab 10/21/19 19:30 Received CBC WITH DIFF [HEME] Stat Lab 10/21/19 19:30 Results CK PROFILE [SP CHEM] Stat Lab 10/21/19 19:30 Received COMPREHENSIVE METABOLIC PANEL [CHEM] Stat Lab 10/21/19 19:30 Received LACTATE, PLASMA [CHEM] Lab 10/21/19 22:30 Uncollected LACTATE, PLASMA [CHEM] Lab 10/22/19 01:30 Uncollected LACTATE, PLASMA [CHEM] Q3H Lab 10/21/19 19:30 Received MAGNESIUM [CHEM] Stat Lab 10/21/19 19:30 Received PROTIME WITH INR [COAG] Stat Lab 10/21/19 19:30 Results PTT [COAG] Stat Lab 10/21/19 19:30 Results TROPONIN T Stat Lab 10/21/19 19:30 Received URINALYSIS W/POSS RFLX CULT [URINALYSIS] Stat Lab 10/21/19 19:22 Uncollected Albuterol 2.5MG/Ipratrop 0.5MG [Duoneb (A & A)] Med 10/21/19 19:26 Discontinued 3 ml INH NOW ONE Methylprednisolone Sod Succ [Solu-Medrol] Med 10/21/19 19:26 Discontinued 125 mg IV NOW ONE Aerosol Treatments Routine Oth 10/21/19 19:26 Active Aerosol Treatments Stat Oth 10/21/19 19:26 Active Oxygen Device Stat Oth 10/21/19 19:22 Active Result Diagrams: 10/21/19 19:30 10/21/19 19:30 - XRAY 1 XRAY Study: Chest Impression: Abnormal ( Signed EXAM: CHEST-1 VIEW INDICATION: SEPSIS PROTOCOL TECHNIQUE: One view COMPARISON: 10/11/2019 FINDINGS: There is severe COPD. There has been interval worsening of the airspace consolidation at the right lung base indicating worsening pneumonia. There is a small effusion that is larger than the previous study. No other new consolidation is identified. Cardiac silhouette is stable. IMPRESSION: Interval worsening of right basilar pneumonia. Electronically signed by Hever Pollard 10/21/2019 7:57 PM 10/21/191956 Interpreting Physician: Hever Pollard MD Dictated Date/Time: 10/21/191955 cc: Javier De La Cruz MD; Carina Vergara MD) Comparison with other Films: changes noted (10/11/19) Departure - Departure Date of Disposition Decision: 10/21/19 Time of Disposition Decision: 21:59 DIAGNOSIS: Pneumonia Qualifiers: Pneumonia type: due to unspecified organism Laterality: unspecified laterality Lung location: unspecified part of lung Qualified Code(s): J18.9 - Pneumonia, unspecified organism Disposition: ADMITTED INPATIENT 09 Certified Medical Emergency: Emergent Condition: Stable Referrals and Follow-Ups: Carina Vergara MD [Primary Care Provider] - - Critical Care Note This patient required my direct & personal management of CC.: No Attestation - Physician/ MALORIE Attestation Patient care was provided by Advanced Practice Provider:: No The physician spent face to face time with patient:: Yes Advanced Practice Provider documentation review:: Supervising physician onsite and consulted in the evaluation and care of this patient. The physician did have a face to face encounter with the patient. This chart was documented by the indicated scribe, (Natalya Michel Scribe) and accurately reflects the services I performed and decisions made by me, Javier De La Cruz MD, as attested by the provider's signature.
[2019-10-21 22:07] LABS: URINE SOURCE CLEAN CATCH
[2019-10-21 22:30] LABS: BILIRUBIN URINE NEGATIVE (NEGATIVE); BLOOD URINE TRACE (NEGATIVE); COLOR YELLOW; GLUCOSE URINE NEGATIVE (NEGATIVE); KETONE URINE NEGATIVE (NEGATIVE); LEUKOCYTES URINE NEGATIVE (NEGATIVE); NITRITE URINE NEGATIVE (NEGATIVE); PH URINE 7.5; PROTEIN URINE TRACE mg/dL (NEGATIVE); TURBIDITY URINE CLEAR (CLEAR); UROBILINOGEN URINE NORMAL (NORMAL)
[2019-10-21 22:33] LABS: UR EPITHELIAL CELLS <10 /HPF (<10); URINE BACTERIA NEGATIVE /HPF; URINE RBC <10 /HPF (<10); URINE WBC <10 /HPF (<10)
[2019-10-21 22:56] LABS: URINE CASTS NONE SEEN; URINE CRYSTALS NONE SEEN; URINE SMALL ROUND CELLS NONE SEEN; URINE YEAST NONE SEEN
[2019-10-21] MEDS ORDERED: VANCOMYCIN IV PER PHARMACY MISC SCH (23:47)
[2019-10-21] MEDS ORDERED: ZOFRAN IV PRN (23:47)
[2019-10-21] MEDS ORDERED: TYLENOL PO PRN (23:47)
[2019-10-22] MEDS: DUONEB (A & A) INH SCH ×7 (00:05→22:56)
--- NOTE | 2019-10-22 01:26 | HISTORY AND PHYSICAL ---
PRIMARY CARE PHYSICIAN: Dr. Carina Vergara. CHIEF COMPLAINT: Shortness of breath. HISTORY OF PRESENTING ILLNESS: A 59-year-old male with a history of advanced COPD, mycobacterium complex, hyperlipidemia and restless legs syndrome, who had presented to emergency department with worsening shortness of breath for several weeks. The patient states that he was having difficulty breathing and his usual medication regimen was not helping. The patient states that he was admitted in the earlier part of September for treatment of pneumonia. However, he was never sent home with any antibiotics. The patient was seen in the ED. He was seen in some mild to moderate respiratory distress. He was started on IV antibiotics due to imaging showing possibility of pneumonia. The patient will require admission for further management. At the time of my examination, patient denied any headache, chest pain, hemoptysis, but complained of cough, shortness of breath and fever. PAST MEDICAL HISTORY: Includes COPD, hyperlipidemia, hypertension, restless legs syndrome. PAST SURGICAL HISTORY: Right knee replacement. ALLERGIES: Aspirin and naproxen. CURRENT MEDICATIONS: Include albuterol nebulizers, buspirone 5 mg p.o. b.i.d., gabapentin 300 mg p.o. daily, pravastatin 40 mg p.o. daily, Requip 4 mg p.o. daily. SOCIAL HISTORY: 50+ pack years history of smoking. Denies any history of alcohol or illicit drug use. FAMILY HISTORY: No history of coronary disease. REVIEW OF SYSTEMS: Fourteen point review of systems as listed in HPI. Other systems negative. PHYSICAL EXAMINATION: GENERAL: Cooperative, friendly male. He is resting more comfortably now. VITAL SIGNS: Temperature 99.2 degrees, pulse 106, respiration 18, blood pressure 110/67. HEENT: Atraumatic, normocephalic. Extraocular movements intact. PERRLA. NECK: No masses. CHEST: Rhonchi. CARDIOVASCULAR: Regular rate and rhythm. ABDOMEN: Soft. Positive bowel sounds. EXTREMITIES: No edema. NEUROLOGIC: He is awake, alert, oriented x3. GENITOURINARY: No bladder distention. SKIN: Warm. LABORATORIES AND STUDIES: WBC 3.75, hemoglobin 11.7, hematocrit 35.9, platelets 185,000. Blood gases shows a pH of 7.39, pCO2 of 56. Sodium 139, potassium 4.3, chloride 97, CO2 is 31, BUN is 11, creatinine 0.5, glucose 140. Chest x-ray shows worsening right basilar pneumonia. ASSESSMENT: This is a 59-year-old male with a history of chronic obstructive pulmonary disease, hyperlipidemia, restless legs syndrome and mycobacterium complex, who had presented to emergency department with several weeks of worsening shortness of breath. He was evaluated in the emergency department. He had imaging done which did show the possibility of pneumonia. Subsequently, he will require admission for further management. 1. Pneumonia. 2. Acute on chronic hypercapnic respiratory failure. 3. Mycobacterium avium complex infection. 4. Hyperlipidemia. PLAN: 1. We will admit patient to medical floor with telemetry. 2. We will check blood cultures. Start patient on IV antibiotics. 3. We will continue with supplemental oxygen and use BiPAP if needed. 4. We will restart his medications for his mycobacterium complex infection. 5. We will consult Infectious Disease. 6. We will put patient on DVT prophylaxis with SCDs. 7. We will continue to follow, and reassess and make further recommendation based on patient's clinical course. cc: Nic Hilario MD
[2019-10-22] MEDS ORDERED: VANCOMYCIN 1 GM/NS 1 GM/250 ML IVPB IV ONE (01:45)
[2019-10-22 01:54] LABS: EOS# 0.01 X1000 (0.0-0.7); EOS% 0.2 % (0.0-10.0); HEMOGLOBIN 11.6 g/dL (14.0-18.0); LYMPH# 0.36 X1000 (1.2-3.4); LYMPH% 8.7 % (20.5-51.1); MCH 29.8 PG (27-31); MCHC 32.2 g/dL (33-37); MCV 92.5 FL (81-99); MONO% 7.3 % (1.7-9.3); MPV 9.1 FL (7.4-10.4); NEUT# 3.46 X1000 (1.4-6.5); NEUT% 83.8 % (42.2-75.2); PLT 201 X1000 (130-400); RBC 3.89 XMIL (4.7-6.1); RDW 12.1 % (11.5-14.5); WBC 4.13 X1000 (4.8-10.8)
[2019-10-22 02:17] LABS: AGAP 9; BUN 10 mg/dL (8-22); CALCIUM 8.9 mg/dL (8.8-10.2); CHLORIDE 94 mmol/L (98-107); COSMO 264; CREATININE 0.6 mg/dL (0.7-1.2); ESTIMATED GFR > 60; GLUCOSE 147 mg/dL (70-104); POTASSIUM 4.2 mmol/L (3.5-5.1); SODIUM 131 mmol/L (136-145); TCO2 28 mmol/L (25-35)
[2019-10-22] MEDS: REQUIP PO SCH ×2 (02:26→20:56)
[2019-10-22] MEDS: CIPRO PO SCH ×2 (02:26→20:59)
[2019-10-22] MEDS: NS 1,000 ML IV SCH (02:26)
[2019-10-22] MEDS ORDERED: ZOSYN 3.375 GM in NS 50 ML IV SCH (04:00)
[2019-10-22] MEDS ORDERED: BUSPAR PO SCH (09:00)
[2019-10-22] MEDS: ANORO ELLIPTA 62.5-25 MCG INH INH SCH (09:07)
[2019-10-22] MEDS ORDERED: VANCOMYCIN 1,500 MG in NS 250 ML IV SCH (10:00)
[2019-10-22] MEDS: NEURONTIN PO SCH (10:30)
[2019-10-22] MEDS: PRAVACHOL PO SCH (10:31)
[2019-10-22] MEDS: ZYVOX PO SCH ×2 (10:31→20:56)
[2019-10-22] MEDS: ZITHROMAX PO SCH (10:31)
[2019-10-22] MEDS: RIFAMPIN PO SCH (10:31)
[2019-10-22] MEDS: MYAMBUTOL PO SCH (10:32)
[2019-10-22] MEDS: MAXIPIME 2 GM in NS 100 ML IV SCH ×2 (11:36→20:56)
--- NOTE | 2019-10-22 18:14 | INFECTIOUS DISEASE CONSULT REP ---
DATE: 10/22/2019 CONCLUSION: The patient has a right lower lobe pneumonia. I think this is most likely due to a bacterial infection. The patient does have a chronic Mycobacterium avium complex lung infection as well. RECOMMENDATION: The patient, for his presumed bacterial pneumonia, was on vancomycin and Zosyn and I have switched this to Zyvox and cefepime. I have also ordered a sputum gram stain and culture and also I have discontinued BuSpar because it can interact with the Zyvox and cause an adverse reaction. DISCUSSION: The patient tells me he has become progressively dyspneic in the past two days. Also, he is coughing more and he is producing a sputum which is clear. He does have fever with a maximum temperature of 101.2 degrees, The patient's chest x-ray shows worsening of the right lower lobe pneumonia. The CBC shows a white count of 4130, hemoglobin 11.6, and platelet count 201,000. Creatinine is 0.6. GFR is greater than 60. Liver function studies are normal. PAST MEDICAL HISTORY/REVIEW OF SYSTEMS: Eyes and Ears: The patient's vision is good, but he is deaf in his left ear. Neck: No stiffness. Respiratory: The patient has severe COPD. He also has a chronic Mycobacterium avium complex infection. Because of this, he has dyspnea on exertion, but he usually does not cough up any sputum. Gastrointestinal: No nausea, vomiting, or diarrhea. Genitourinary: No dysuria or flank pain. Bones, Joints, and Muscles: No swollen joint or muscle aching. Neurologic: No seizures. No loss of motor or sensory function. PREVIOUS HOSPITALIZATIONS AND OPERATIONS: He has had two skin cancers removed. He has had a right total knee arthroplasty. He has had three separate times when he had a chest tube placed on the right side. MEDICAL DISEASES: Positive for chronic obstructive pulmonary disease, hyperlipidemia, and restless leg syndrome. The patient also is a long-term cigarette smoker. Infectious disease history positive for Mycobacterium avium complex lung infection which is being managed by Dr. Rodriguez. He has had in the past bacterial pneumonia also. FAMILY HISTORY: Positive for COPD. Negative for myocardial infarction or stroke. SOCIAL HISTORY: The patient is . He does smoke cigarettes. He does not drink alcoholic beverages or abuse drugs. The patient has a dog as a pet. ALLERGIES: The patient's chart lists allergies to aspirin and naproxen. HOME MEDICATIONS: Include the following, albuterol inhaler, azithromycin, BuSpar, Cipro, ethambutol, gabapentin, ipratropium inhaler, Pravachol, rifampin, Septra and Requip. PHYSICAL EXAMINATION: Vital Signs: Temperature is 98 degrees, pulse 75, respirations 18, blood pressure 103/62. The patient is 59 years old. He is 5 feet 10 inches tall and weighs 131 pounds. General: This is a chronically ill-appearing, middle-aged male. He frequently coughed during the exam but did not bring up any sputum. Head/eyes/ears/nose/throat: The patient is edentulous. I did not see any white mucosal patches. Neck: No meningismus. Thorax: Increased AP diameter of the chest. Lungs: Had diminished breath sounds. I did not hear any rales or rhonchi. Cardiovascular: Heart rate is regular. Abdomen: Soft and nontender. Neurologic: The patient is alert. He can move his extremities. He can ambulate. He does not have a tremor. The patient's memory as regarding his medical history was good. The patient's sensation was intact. Integument: No rash noted. Thank you for the consult. cc: MD HUGO Alvarado
--- NOTE | 2019-10-22 20:08 | PROGRESS NOTE ---
DATE: 10/22/2019 SUBJECTIVE: Patient has no major complaints. OBJECTIVE: Vital signs: Blood pressure is 118/74, heart rate of 79, respiratory rate 18, temperature 97.3 degrees, 97% on 4 L. Cardiovascular: Regular rate and rhythm. Pulmonary: Bilateral breath sounds. Clear to auscultation. GI: Soft, nontender, and nondistended. Bowel sounds are positive. Air movement was diminished throughout. LABORATORY DATA: White count is 4, hemoglobin and hematocrit 11 and 36, platelets 201,000. Sodium 131. PROBLEM LIST: 1. Recurrent pneumonia. We will continue empiric antibiotics. Infectious Disease and Pulmonary have been consulted. He is on azithromycin, Ciprofloxacin, ethambutol. Dr. Santiago has put him on cefepime which is an excellent choice. We may have to consider Zyvox or something I guess if not improved. 2. Mycobacterium avium complex. He is on chronic therapy, azithromycin, Ciprofloxacin, ethambutol, and rifampin. 3. Chronic obstructive pulmonary disease exacerbation, with persistent tobacco use. We will continue to treat. He is on his breathing treatments and inhaled steroids. 4. Disposition. Pending clinical status. He left fairly abruptly last time and was very insistent to go home, and discussed that we would make sure that he had improved overall before deciding to get him home at this time. 5. We will do deep venous thrombosis and gastrointestinal prophylaxis. cc: Wilfred Brock MD
[2019-10-23] MEDS: CIPRO PO SCH ×2 (02:19→12:50)
--- NOTE | 2019-10-23 03:01 | PULMONOLOGY CONSULTATION ---
DATE: 10/22/2019 REQUESTING PHYSICIAN: Dr. Brock. REASON FOR CONSULTATION: Pneumonia. HISTORY OF PRESENT ILLNESS: Mr. 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 The patient was admitted to the hospital 10/11/2019 with a new right lower lobe pneumonia. Given multiple different antibiotics, it was felt that a quinolone resistant gram-negative organisms such as Pseudomonas was the most likely pathogen. The patient only remained in the hospital for 2-1/2 days before he demanded to go home because he "had something going on at the house that he had to attend to." The patient returned to the emergency room on 10/21/2019 with increasing cough, increasing shortness of breath with increased oxygen requirements. Chest x-ray reveals small right-sided effusion, but with worsening airspace consolidation in the right lung. PAST MEDICAL HISTORY: Problem list: 1. End-stage COPD with pulmonary cachexia and ongoing tobacco use. 2. Chronic hypoxemic and chronic hypercapnic respiratory failure. 3. Mycobacterium avium complex disease, on multiple antibiotics for suppression of this disease process. 4. Tsukamurella pulmonis coinfection. 5. Coronary artery disease. 6. Prior asbestos exposure. 7. Anxiety disorder. 8. Restless leg syndrome. SOCIAL HISTORY: The patient continues to smoke. No alcohol use. FAMILY HISTORY: Positive for asbestos-related lung diseases. REVIEW OF SYSTEMS: As noted in the HPI. PHYSICAL EXAMINATION: General: Reveals a chronically ill-appearing male who appears older than his stated age. Vital Signs: He has been afebrile during this hospitalization. Blood pressure 118/74, heart rate 79, respiratory rate 18, oxygen saturation 97% on 4 L per nasal cannula. HEENT: Pupils are equal and reactive. Oropharynx appears clear. Neck: Supple. Chest: Reveals coarse rhonchi bilaterally with decreased breath sounds right base. Cardiac: S1, S2. Abdomen: Soft. Extremities: Without edema. LABORATORIES: Increasing infiltrate in the right lower lobe as outlined above. White blood count 4.13, hemoglobin 11.6, platelet count 201,000. Arterial blood gas, pH 7.39, pCO2 of 56, PO2 of 91 with a carboxyhemoglobin level of 8.2. Sodium 131, potassium 4.2, chloride 94, BUN 10, creatinine 0.6. IMPRESSION: A 59-year-old with severe chronic obstructive pulmonary disease with a right lower lobe pneumonia which was likely inadequately treated due to patient's insistence on going home. As indicated by carboxyhemoglobin level of 8, he has continued to smoke an excessive amount of cigarettes. The patient's pneumonia is likely a gram-negative organism as outlined above although gram-positives such as Staph are also in the differential. The patient has returned to the hospital with: 1. Worsening pneumonia. 2. Acute on chronic hypoxemic respiratory failure. 3. Chronic hypercapnic respiratory failure. 4. Pulmonary cachexia. 5. Nicotine addiction with ongoing tobacco use. RECOMMENDATIONS: 1. Agree with antibiotics outlined per Dr. Job Santiago. I anticipate the patient will need a 3- week course of antibiotics in attempt to clear this pneumonia although with the severity of his COPD and the severity of his pneumonia, he may not survive this infection. 2. Continue oxygen for hypoxemic respiratory failure. 3. Continue treatment for atypical mycobacterium. 4. Prognosis is poor. cc: Sulaiman Rodriguez MD
[2019-10-23] MEDS: DUONEB (A & A) INH SCH ×6 (03:30→22:41)
[2019-10-23] MEDS: NS 1,000 ML IV SCH (04:30)
[2019-10-23] MEDS: LOVENOX SUBQ SCH (06:29)
[2019-10-23] MEDS: PRILOSEC PO SCH (06:29)
[2019-10-23 07:05] LABS: EOS# 0.05 X1000 (0.0-0.7); EOS% 1.4 % (0.0-10.0); HEMATOCRIT 34.8 % (42.0-52.0); HEMOGLOBIN 11.1 g/dL (14.0-18.0); LYMPH# 0.34 X1000 (1.2-3.4); LYMPH% 9.5 % (20.5-51.1); MCH 29.4 PG (27-31); MCHC 31.9 g/dL (33-37); MCV 92.3 FL (81-99); MONO# 0.48 X1000 (0.11-0.59); MONO% 13.4 % (1.7-9.3); MPV 8.9 FL (7.4-10.4); NEUT# 2.72 X1000 (1.4-6.5); NEUT% 75.7 % (42.2-75.2); PLT 179 X1000 (130-400); RBC 3.77 XMIL (4.7-6.1); RDW 11.9 % (11.5-14.5); WBC 3.59 X1000 (4.8-10.8)
[2019-10-23 07:52] LABS: ESTIMATED GFR > 60
[2019-10-23 07:54] LABS: AGAP 10; BUN 5 mg/dL (8-22); CALCIUM 9.1 mg/dL (8.8-10.2); CHLORIDE 89 mmol/L (98-107); COSMO 257; CREATININE 0.5 mg/dL (0.7-1.2); GLUCOSE 121 mg/dL (70-104); POTASSIUM 3.9 mmol/L (3.5-5.1); SODIUM 129 mmol/L (136-145); TCO2 30 mmol/L (25-35)
[2019-10-23] MEDS: ZYVOX PO SCH ×2 (08:34→21:09)
[2019-10-23] MEDS: PRAVACHOL PO SCH (08:34)
[2019-10-23] MEDS: RIFAMPIN PO SCH (08:34)
[2019-10-23] MEDS: NEURONTIN PO SCH (08:34)
[2019-10-23] MEDS: MYAMBUTOL PO SCH (08:35)
[2019-10-23] MEDS: MAXIPIME 2 GM in NS 100 ML IV SCH ×2 (08:35→21:09)
[2019-10-23] MEDS: ZITHROMAX PO SCH (08:35)
[2019-10-23] MEDS ORDERED: NS 1,000 ML IV ONE (16:35)
[2019-10-23] MEDS: REQUIP PO SCH (21:09)
--- NOTE | 2019-10-23 22:56 | PROGRESS NOTE ---
DATE: 10/23/2019 SUBJECTIVE: The patient has no major complaints. He is still short of breath, still with productive cough. OBJECTIVE: Blood pressure is 99/67, heart rate 92, respiratory rate 18, temperature 98.6 degrees, 96% on 4 L. He had a temperature last night of 100.6.Cardiovascular: Regular rate and rhythm. Pulmonary: He was diminished throughout. There was no wheezing. He had some rales at both bases. Occasionally some rhonchi, but really just poor air movement throughout. Gastrointestinal: Soft, nontender, nondistended. Bowel sounds are positive. LABORATORY DATA: White count 3.5, hemoglobin and hematocrit 11 and 34, platelets 179,000. Sodium is down to 129. PROBLEM LIST: 1. Recurrent pneumonia. He is on antibiotics per Dr. Santiago, which are Zyvox and cefepime. Appreciate Dr. Santiago's input. 2. Mycobacterium avium complex infection. He is on azithromycin, Cipro, ethambutol, and rifampin. He apparently has a history of a Tsukamurella pulmonis infection, which I am not sure if he has completed treatment for that, but we will see. 3. Persistent tobacco abuse. We have counseled him on that. 4. Chronic obstructive pulmonary disease exacerbation. We will continue treatment. 5. Disposition. May be still a couple of days. Last admission, he left because he was adamant about going home because he had something to do, but he is more willing to stay for the duration this time. cc: Wilfred Brock MD
[2019-10-24] MEDS: CIPRO PO SCH ×2 (00:26→15:24)
--- NOTE | 2019-10-24 01:21 | INFECTIOUS DISEASE PROGRESS NO ---
DATE: 10/23/2019 PRESENT ILLNESS: The patient has an acute bacterial pneumonia superimposed on chronic obstructive pulmonary disease with a chronic Mycobacterium avium complex infection. MEDICATIONS: The patient is on cefepime and Zyvox. This is day 1 of treatment with both agents. PHYSICAL EXAMINATION: Vital Signs: Temperature is 98.2 degrees, pulse 80, respirations 19, blood pressure 113/66. General: This is a cachectic-appearing, middle-aged male. He is in no acute distress. Head/eyes/ears/nose/throat: He can hear my spoken words and see near objects. He does not have any white coating of his tongue. Neck: No pain with movement. Thorax: Increased AP diameter of the chest. Lungs: Diminished breath sounds bilaterally. I did not hear wheezing or rales. Cardiovascular: Heart rate is regular. Abdomen: Soft and nontender. Neurologic: The patient is alert. He is able to ambulate without any trouble. He does not have a tremor. LAB AND X-RAY: There is no new x-ray for today. The patient's CBC shows a white count of 3590, hemoglobin 11.1, and platelet count 179,000. Creatinine is 0.5, GFR is greater than 60. Blood cultures thus far are negative. ASSESSMENT AND PLAN: The patient has pneumonia. The plan is to continue cefepime and Zyvox. The patient also is on medication that Dr. Rodriguez is giving the patient for the Mycobacterium avium complex infection. COMORBIDITIES: The patient has chronic obstructive pulmonary disease and the patient continues to be a cigarette smoker. The patient also has chronic Mycobacterium avium complex infection of the lung. The Mycobacterium avium complex infection is being managed by Dr. Rodriguez. cc: Job Santiago MD
[2019-10-24] MEDS: DUONEB (A & A) INH SCH ×6 (03:30→22:53)
[2019-10-24] MEDS: PRILOSEC PO SCH ×2 (05:30→06:00)
[2019-10-24] MEDS: LOVENOX SUBQ SCH (05:30)
[2019-10-24 07:28] LABS: BASO# 0.01 X1000 (0.0-0.2); BASO% 0.3 % (0.0-0.8); EOS# 0.08 X1000 (0.0-0.7); EOS% 2.1 % (0.0-10.0); HEMATOCRIT 34.2 % (42.0-52.0); HEMOGLOBIN 10.8 g/dL (14.0-18.0); LYMPH# 0.36 X1000 (1.2-3.4); LYMPH% 9.3 % (20.5-51.1); MCH 29.4 PG (27-31); MCHC 31.6 g/dL (33-37); MCV 93.2 FL (81-99); MONO# 0.55 X1000 (0.11-0.59); MONO% 14.2 % (1.7-9.3); MPV 8.9 FL (7.4-10.4); NEUT# 2.88 X1000 (1.4-6.5); NEUT% 74.1 % (42.2-75.2); PLT 186 X1000 (130-400); RBC 3.67 XMIL (4.7-6.1); WBC 3.88 X1000 (4.8-10.8)
[2019-10-24 07:46] LABS: ESTIMATED GFR > 60
[2019-10-24 07:51] LABS: AGAP 11; BUN 6 mg/dL (8-22); CALCIUM 9.2 mg/dL (8.8-10.2); CHLORIDE 89 mmol/L (98-107); COSMO 259; CREATININE 0.4 mg/dL (0.7-1.2); GLUCOSE 113 mg/dL (70-104); POTASSIUM 3.7 mmol/L (3.5-5.1); SODIUM 130 mmol/L (136-145); TCO2 30 mmol/L (25-35)
[2019-10-24] MEDS: ANORO ELLIPTA 62.5-25 MCG INH INH SCH (08:10)
[2019-10-24] MEDS: ZYVOX PO SCH ×2 (09:14→21:49)
[2019-10-24] MEDS: MAXIPIME 2 GM in NS 100 ML IV SCH ×2 (09:14→21:49)
[2019-10-24] MEDS: RIFAMPIN PO SCH (09:15)
[2019-10-24] MEDS: PRAVACHOL PO SCH (09:15)
[2019-10-24] MEDS: ZITHROMAX PO SCH (09:15)
[2019-10-24] MEDS: MYAMBUTOL PO SCH (09:17)
[2019-10-24] MEDS: NEURONTIN PO SCH (09:21)
[2019-10-24] MEDS: REQUIP PO SCH (21:49)
--- NOTE | 2019-10-25 01:08 | PROGRESS NOTE ---
DATE: 10/24/2019 INTERVAL HISTORY: No acute events overnight. He has not had any fever. SUBJECTIVE: Mr. Jenkins is feeling significantly better. He states his current breathing status is at his baseline. He states that he has tried multiple times to quit smoking, including Chantix, nicotine patch and nicotine gum, but his attempts were unsuccessful. He denies any chest pain. Denies shortness of breath at rest. He has occasional cough. He denies nausea, vomiting, abdominal pain. OBJECTIVE: Vitals: He is no longer tachycardic with pulse of 82 per minute, temperature of 98.3 degrees, respiratory 19, blood pressure 105/60. He is saturating 97% on 4 L nasal cannula. HEENT: Cachectic. Not in distress. Oral cavity is moist. Chest: He has significantly diminished air entry on right hemithorax with inspiratory crackles. He has bilateral end- expiratory wheezes. Cardiac: S1, S2 normal. No murmur, rub, or gallop. Abdomen: Scaphoid, soft, nontender. Extremities: No lower extremity edema. LAB: He has chronic hypercarbia and hyponatremia, hypochloremia on labs, which are currently acceptable. Microbiology: Sputum culture has not shown any growth to date. IMAGING: No new imaging today. ASSESSMENT AND PLAN: 1. Right hemithorax, multifocal pneumonia. Continue intravenous cefepime and linezolid as per Infectious Disease recommendation. I will consider getting a PICC line on 10/26/2019 with discharge on IV antibiotics after I have discussion with Infectious Disease. 2. History of Mycobacterium avium complex infection as well as infection with Tsukamurella pulmonis, as per records on pulmonology reports. I will continue him on his chronic suppressive medications of azithromycin, ciprofloxacin, ethambutol and rifampin. 3. Active tobacco abuse. He was counseled about quitting smoking. Unfortunately, he said previously multiple attempts were unsuccessful. 4. History of chronic obstructive pulmonary disease. I will continue him on albuterol/ipratropium nebulization as well as Umeclidinium/vilanteraol inhalers. DISPOSITION: I will continue to monitor him inside the hospital and we will consider getting a PICC line in next 48 hours. Plan of care discussed with him. His questions have been answered. cc: MD HUGO Kim
[2019-10-25] MEDS: DUONEB (A & A) INH SCH ×6 (03:20→23:10)
[2019-10-25] MEDS: CIPRO PO SCH ×2 (06:01→17:09)
[2019-10-25] MEDS: LOVENOX SUBQ SCH (06:01)
[2019-10-25] MEDS: PRILOSEC PO SCH (06:01)
--- NOTE | 2019-10-25 07:32 | Diag Imaging Result Doc PS360 ---
EXAM: CHEST-1 VIEW - 10/25/2019 HISTORY: SOB TECHNIQUE: Portable chest one view COMPARISON: 07/22/2019 FINDINGS: There is been apparent mild increase in right lower lung consolidation compared to prior. There are stable right pleural effusion. There are pulmonary scarring and pleural thickening at the superior right chest similar to prior. There are some interstitial marking prominence on the left similar to prior. There is no evidence of pneumothorax. IMPRESSION: Mild increase in right lower lung consolidation compared to prior. Electronically signed by Kirby Walters 10/25/2019 7:29 AM
[2019-10-25] MEDS: ANORO ELLIPTA 62.5-25 MCG INH INH SCH (07:49)
[2019-10-25] MEDS: ZITHROMAX PO SCH (09:45)
[2019-10-25] MEDS: ZYVOX PO SCH ×2 (09:45→23:27)
[2019-10-25] MEDS: MYAMBUTOL PO SCH (09:45)
[2019-10-25] MEDS: PRAVACHOL PO SCH (09:46)
[2019-10-25] MEDS: RIFAMPIN PO SCH (09:46)
[2019-10-25] MEDS: NEURONTIN PO SCH (09:46)
[2019-10-25] MEDS: MAXIPIME 2 GM in NS 100 ML IV SCH ×2 (09:53→23:33)
--- NOTE | 2019-10-25 14:01 | PROGRESS NOTE ---
DATE: 10/25/2019 INTERVAL HISTORY: No acute events overnight. Mr. Jenkins got chest x-ray, which shows his infiltrates on the right lungs are worse than before. However, clinically, Mr. Jenkins is feeling fine. He denies any chest pain. He has occasional cough with expectoration, which is close to his baseline. He has mild shortness of breath on exertion, which is also close to his baseline. VITAL SIGNS: Temperature of 98.5 degrees, pulse 93, respiratory rate 16, blood pressure 109/72, he is saturating 100% on 4 L nasal cannula. PHYSICAL EXAMINATION: He has significantly diminished air entry, right infrascapular region, with inspiratory crackles. He has generalized decreased breath sounds because of his COPD. Negative 200 mL on input and output so far today. IMAGING AND LABORATORY DATA: Labs suggestive of no CBC or BMP, which I will repeat tomorrow. Sputum culture has not shown any growth. Chest x-ray today shows worsening infiltrate in the right lower lung compared to prior. ASSESSMENT AND PLAN: 1. Right Lung multifocal pneumonia. Continue intravenous cefepime and linezolid as per Infectious Disease recommendation. I will appreciate Infectious Disease recommendation about changing his antibiotic regime to intravenous vancomycin, meropenem considering worsening infiltrate and leukopenia and mild anemia. Though clinically he seems to be doing better. 2. History of Mycobacterium avium complex infection, as well as infection with Tsukamurella pulmonis as per Pulmonology records. I will continue his chronic suppressive medications of azithromycin, ciprofloxacin, ethambutol, and rifampin. 3. Active tobacco abuse. He was counseled about quitting smoking. He does not need any nicotine patch inside the hospital. 4. History of chronic obstructive pulmonary disease. Continue albuterol/ipratropium nebulization, as well as Anoro Ellipta inhaler. 5. Disposition. I will continue to monitor him inside the hospital for intravenous antibiotics. Plan of care discussed with him. His questions have been answered. cc: MD HUGO Kim
[2019-10-25] MEDS: REQUIP PO SCH (23:27)
[2019-10-26] MEDS: DUONEB (A & A) INH SCH ×6 (03:25→23:20)
[2019-10-26] MEDS: CIPRO PO SCH ×2 (05:31→17:25)
[2019-10-26] MEDS: PRILOSEC PO SCH ×2 (05:31→07:07)
[2019-10-26] MEDS: LOVENOX SUBQ SCH (05:31)
[2019-10-26] MEDS: ANORO ELLIPTA 62.5-25 MCG INH INH SCH (07:42)
[2019-10-26 08:09] LABS: ESTIMATED GFR > 60
[2019-10-26 08:14] LABS: INR 1.12; PROTIME 14.6 Seconds (11.0-16.0)
[2019-10-26 08:22] LABS: AGAP 2; BUN 8 mg/dL (8-22); CALCIUM 9.7 mg/dL (8.8-10.2); CHLORIDE 88 mmol/L (98-107); COSMO 261; CREATININE 0.5 mg/dL (0.7-1.2); GLUCOSE 127 mg/dL (70-104); MAGNESIUM 1.9 mg/dL (1.5-2.7); SODIUM 130 mmol/L (136-145); TCO2 40 mmol/L (25-35)
[2019-10-26] MEDS: RIFAMPIN PO SCH (10:13)
[2019-10-26] MEDS: ZITHROMAX PO SCH (10:14)
[2019-10-26] MEDS: PRAVACHOL PO SCH (10:14)
[2019-10-26] MEDS: ZYVOX PO SCH (10:14)
[2019-10-26] MEDS: MAXIPIME 2 GM in NS 100 ML IV SCH (10:14)
[2019-10-26] MEDS: NEURONTIN PO SCH (10:14)
[2019-10-26] MEDS: MYAMBUTOL PO SCH (10:22)
[2019-10-26] MEDS ORDERED: VANCOMYCIN IV PER PHARMACY MISC SCH (15:15)
[2019-10-26] MEDS ORDERED: VANCOMYCIN 2,100 MG in NS 500 ML IV ONE (16:00)
[2019-10-26 16:17] LABS: INR 1.04; PROTIME 13.7 Seconds (11.0-16.0)
[2019-10-26] MEDS ORDERED: NS 500 ML ONE (17:26)
--- NOTE | 2019-10-26 18:33 | PROGRESS NOTE ---
DATE: 10/26/2019 INTERVAL HISTORY: No acute events overnight. Yesterday, his chest x-ray had worsening infiltrate and I had a discussion with the Infectious Disease doctor about changing the antibiotic coverage. SUBJECTIVE: Mr. Jenkins is feeling fine. He states that he does not have any chest pain. His shortness of breath is close to baseline. He is occasionally coughing. He denies he denies any palpitation. He denies any nausea, vomiting, abdominal pain. We discussed about getting a PICC line tomorrow and possible discharge today. We answered all of his questions. VITALS: Temperature Afebrile, pulse 86, respiratory rate 16, blood pressure 100/60, saturating 100% on 3 L nasal cannula. PHYSICAL EXAMINATION: General: Not in acute distress. Lungs: He does have decreased air entry on right lung field in general with inspiratory crackles. Adequate air entry on left hemithorax, though considering his advanced COPD, lung sounds quite diminished. Cardiovascular: S1, S2 normal. No murmur, rub, or gallop. Abdomen: Scaphoid, soft, nontender. Extremity: No lower edema. Neurologic: He is alert and oriented x3. He is on nasal cannula. LABS: His INR is within acceptable range. He does have low sodium, low chloride and normal kidney function. No new microbiological or imaging data. ASSESSMENT AND PLAN: 1. Right lung multifocal pneumonia. His antibiotic regimen has been changed to intravenous vancomycin and intravenous meropenem considering that his right lung infiltrates were worsening on linezolid and cefepime. The plan is to get a PICC line tomorrow and discharge him once home IV antibiotics have been set up for a total of 3 weeks of IV antibiotics. I will follow up with [facility] tomorrow since he is receiving vancomycin. 2. History of Mycobacterium avium complex infection as well as infection with Tsukamurella pulmonis as per Pulmonary records. I will continue his chronic suppressive medications of azithromycin, ciprofloxacin, ethambutol, and rifampin. 3. Acute tobacco abuse. He does not need any nicotine replacement therapy. I counseled about smoking cessation and he agrees. 4. History of chronic obstructive pulmonary disease. Continue albuterol ipratropium nebulization and Anoro Ellipta inhaler. 5. Disposition. Plan is to get a PICC line and possibly discharge him home on home IV antibiotics. I will discontinue telemetry. I also decreased his oxygen to 2 L and will ask the nurse to check the saturations. cc: Messi Robertson MD MTDIfeanyi
--- NOTE | 2019-10-26 18:43 | INFECTIOUS DISEASE PROGRESS NO ---
DATE: 10/26/2019 PRESENT ILLNESS: The patient is being treated by Dr. Rodriguez for chronic Mycobacterium avium complex infection. Unfortunately, the patient has developed an acute bacterial pneumonia superimposed on the patient's Mycobacterium avium complex infection and the patient's chronic obstructive pulmonary disease. MEDICATIONS: The patient is on cefepime and Zyvox. I agree with Dr. Robertson's suggestion that since the x-ray is worsening that we switch to other antibiotics, specifically we both agree on changing the patient to vancomycin and meropenem. Some of the side effects of the antibiotics including rash, diarrhea, seizures, renal toxicity and ototoxicity have been explained the patient. He agrees with treatment. MEDICATIONS: As mentioned above, patient is on cefepime and Zyvox and we are switching him today to vancomycin and meropenem. PHYSICAL EXAMINATION: Vital Signs: Temperature is 99 degrees, pulse 99, respirations 16, blood pressure is 102/69. General: This is a cachectic appearing middle-aged male. He is in no acute distress sitting in bed. Head/eyes/ears/nose/throat: He can hear my spoken words and see near objects. He does not have any white coating of his tongue. Neck: No pain with movement. Thorax: Increased AP diameter of the chest. Lungs: Decreased breath sounds bilaterally. I did not hear wheezing or rales. Cardiovascular: Heart rate is regular. Abdomen: Soft and nontender. Extremities: The patient's IV site is not erythematous or swollen. Neurologic: The patient is alert. He can ambulate on his own. He does not have a tremor. He can carry on a coherent conversation. LAB AND X-RAY: Chest x-ray shows increase in the right lower lobe infiltrate. The patient's hemoglobin is 14.6, creatinine is 0.5, GFR is greater than 60. ASSESSMENT AND PLAN: The patient has a superimposed pneumonia on the patient's chronic obstructive pulmonary disease and chronic mycobacterium avium complex infection. The superimposed infection did not respond to Zyvox and cefepime and the patient has been switched to a combination of vancomycin and meropenem. I have requested that the patient have a PICC placed and I put in a consult for [facility] to set up vancomycin and meropenem to do at home. COMORBIDITIES: The patient has chronic obstructive pulmonary disease. He is a cigarette smoker and he also has chronic mycobacterium avium complex, which is being managed by Dr. Rodriguez. cc: Job Santiago MD
[2019-10-26] MEDS: REQUIP PO SCH (21:01)
[2019-10-26] MEDS: MERREM 1 GM in NS 50 ML IV SCH (21:01)
[2019-10-27] MEDS: DUONEB (A & A) INH SCH (03:25)
[2019-10-27] MEDS: MERREM 1 GM in NS 50 ML IV SCH ×2 (04:19→13:03)
[2019-10-27] MEDS: CIPRO PO SCH (04:19)
[2019-10-27] MEDS: LOVENOX SUBQ SCH (05:51)
[2019-10-27] MEDS ORDERED: VANCOMYCIN 1,650 MG in NS 250 ML IV SCH (06:00)
[2019-10-27] MEDS: PRILOSEC PO SCH (06:16)
--- NOTE | 2019-10-27 07:14 | PULMONOLOGY PROGRESS NOTE ---
DATE: 10/26/2019 SUBJECTIVE: The patient is awake, alert, and conversant. He feels better. He has a dry, nonproductive cough. OBJECTIVE: Vital Signs: The patient has been afebrile for the last 24 hours. Blood pressure 102/69, heart rate 99, respiratory rate 16, oxygen saturation 98% on nasal cannula. HEENT: Pupils are equal and reactive. Oropharynx appears clear. Neck: Supple. Chest: Diminished breath sounds with crackles and rhonchi throughout the right lung. Cardiac: S1, S2. Abdomen: Soft. Extremities: Without edema. LABORATORY DATA: Microbiology reveals no new culture data. White blood count 3.88, hemoglobin 10.8, platelet count 186,000. Sodium 130, potassium 4.0, chloride 88, bicarbonate 40, BUN 8, creatinine 0.5. IMPRESSION: A 59-year-old with: 1. End-stage chronic obstructive pulmonary disease. 2. Worsening pneumonia. 3. Acute on chronic hypoxemic respiratory failure. 4. Pulmonary cachexia. 5. Chronic atypical mycobacterial disorder/infection. PLAN: 1. Agree with plans to place a PICC line and initiate a prolonged course of antibiotics as an outpatient. 2. Encourage the patient to discontinue tobacco. 3. Continue bronchial hygiene. 4. This pneumonia is relatively severe in a patient who already had severe lung disease. His prognosis is poor. cc: Sulaiman Rodriguez MD
[2019-10-27 07:57] LABS: ESTIMATED GFR > 60
[2019-10-27 07:59] LABS: AGAP 9; BUN 8 mg/dL (8-22); CALCIUM 9.4 mg/dL (8.8-10.2); CHLORIDE 89 mmol/L (98-107); COSMO 261; CREATININE 0.5 mg/dL (0.7-1.2); GLUCOSE 125 mg/dL (70-104); POTASSIUM 3.8 mmol/L (3.5-5.1); SODIUM 130 mmol/L (136-145); TCO2 32 mmol/L (25-35)
--- NOTE | 2019-10-27 08:41 | Diag Imaging Result Doc PS360 ---
EXAM: CHEST-2 VIEWS 10/27/2019 HISTORY: abnormal exam TECHNIQUE: PA and lateral chest COMMENT: There is pleural thickening and/or loculated effusion in the right costophrenic angle and apex. Coarse opacities are seen throughout the right lung with elevation of the right hemidiaphragm and hilum. Compared to 10/25/2019 the appearance of the left lung has not changed significantly. The opacities on the right are similar in appearance. Compared to 10/21/2019 the opacification of the right base is slightly worse. IMPRESSION: Pleural and parenchymal fibrosis on the right with superimposed pneumonia. COPD. Granulomatous changes. Electronically signed by Ruben Wagoner 10/27/2019 8:38 AM
[2019-10-27] MEDS: RIFAMPIN PO SCH (09:07)
[2019-10-27] MEDS: ZITHROMAX PO SCH (09:07)
[2019-10-27] MEDS: MYAMBUTOL PO SCH (09:08)
[2019-10-27] MEDS: PRAVACHOL PO SCH (09:08)
[2019-10-27] MEDS: ANORO ELLIPTA 62.5-25 MCG INH INH SCH (09:09)
[2019-10-27] MEDS: NEURONTIN PO SCH (09:15)
[2019-10-27 09:49] LABS: BASO# 0.01 X1000 (0.0-0.2); BASO% 0.3 % (0.0-0.8); HEMATOCRIT 35.3 % (42.0-52.0); HEMOGLOBIN 11.1 g/dL (14.0-18.0); LYMPH# 0.32 X1000 (1.2-3.4); LYMPH% 9.8 % (20.5-51.1); MCH 29.3 PG (27-31); MCHC 31.4 g/dL (33-37); MCV 93.1 FL (81-99); MONO# 0.42 X1000 (0.11-0.59); MONO% 12.8 % (1.7-9.3); MPV 9.4 FL (7.4-10.4); NEUT# 2.43 X1000 (1.4-6.5); NEUT% 74.1 % (42.2-75.2); PLT 211 X1000 (130-400); RBC 3.79 XMIL (4.7-6.1); WBC 3.28 X1000 (4.8-10.8)
[2019-10-27 12:03] VITALS: BP 102/64
[2019-10-27] MEDS ORDERED: NS 250 ML ONE (13:52)
--- NOTE | 2019-11-08 19:53 | DISCHARGE SUMMARY ---
ADMISSION DATE: 10/21/2019 DISCHARGE DATE: 10/27/2019 FINAL DISCHARGE DIAGNOSES: 1. Bilateral lobe pneumonia. 2. History of mycobacterium avium complex. 3. Tobacco dependence. 4. Chronic obstructive pulmonary disease. 5. Hyperlipidemia. 6. Situational depression. CONSULTATIONS: 1. Infectious Disease consultation with Dr. Santiago. 2. Pulmonary consultation with Dr. Rodriguez. HOSPITAL COURSE: Mr. Jenkins is a 59-year-old male with a history of mycobacterium avium complex who presented to the ER with a chief complaint of shortness of breath. In the ER a chest x-ray was done that revealed a worsening right basilar pneumonia. The patient was admitted to the hospitalist service. Pulmonary Medicine and ID were consulted for further recommendations. Blood and sputum cultures were obtained and patient was started on antibiotic therapy as directed by Dr. Santiago. The patient was initially started on Zyvox and cefepime. The patient was monitored closely in hospital setting. The repeat chest x-ray revealed worsening of the pneumonia so the patient was switched to vancomycin and meropenem. The patient was continued on this regimen and then it was recommended by Dr. Santiago that the patient be sent home with IV antibiotics. Arrangements were made for IV antibiotics to be done as outpatient. A PICC line was placed and the antibiotics were arranged to be provided through [facility]. The patient was ultimately cleared for discharge home on 10/27/2019. DISCHARGE MEDICATIONS: 1. Meropenem 1 g IV every 8 hours for 3 weeks. 2. Vancomycin 1 g IV daily for 3 weeks. 3. Ethambutol 3 tablets oral every morning. 4. Pravachol 40 mg p.o. every morning. 5. Requip 4 mg oral at bedtime. 6. Ellipta 1 puff inhaled daily. 7. BuSpar 5 mg oral twice a day. 8. Albuterol 8.5 g inhaled p.r.n. for shortness of breath. 9. Rifampin 600 mg oral daily. 10. Azithromycin 750 mg oral every morning. 11. Gabapentin 300 mg oral daily as needed. 12. DuoNeb 3 mL inhaled every 4 to 6 hours as needed. DISCHARGE DIET: Regular diet. ACTIVITY: As tolerated. FOLLOWUP INSTRUCTIONS: The patient will need to follow up with Dr. Santiago on November 05 at 8:30 a.m. The patient will need to follow up with Dr. Rodriguez on 11/05/2019 at 10:30 a.m. cc: Lolis Castañeda MD
== END 2019-10-27 15:47 | disposition home health service (06) | DRG 193 ==
LOC: SUPCPDRO → ED 18:53 → SUATTDRO 23:10 → 3N 10-22 00:22
PROVIDERS: ATTEND Internal Medicine